=== PATIENT | male | born 1960 | race Caucasian/White ===

== ENCOUNTER 2017-11-26 16:41 | Emergency (ER) | payer BC ==
[2017-11-26] MEDS ORDERED: BUPIVACAINE 0.5% PF 10 ML VIAL ONE (17:24)
[2017-11-26] MEDS ORDERED: LIDOCAINE 1% 20 ML MDV ONE (17:25)
--- NOTE | 2017-11-26 17:27 | RAD REPORT ---
EXAM DESCRIPTION: RAD -Hand Left 3 View - 11/26/2017 5:19 pm CLINICAL HISTORY: Left hand pain status post injury FINDINGS: Amputation involves a portion of the terminal tuft of the fourth digit. Comminuted fractur e is seen. No dislocation is noted A small radiopaque foreign body is present within the soft tissues adjacent to second MCP joint
[2017-11-26] MEDS ORDERED: TETANUS & DIPHTHERIA TOX,ADULT 0.5 ML VIAL ONE (18:09)
[2017-11-26] MEDS ORDERED: CEFAZOLIN SODIUM 1 GM/VIAL ONE (18:09)
--- NOTE | 2017-11-26 18:26 | EDPHYS ---
Physician Documentation [facility] Name: Gorge Schuler Age: 57 yrs Sex: Male : 1960 Arrival Date: 11/26/2017 Time: 16:42 Bed 2 Private MD: ED Physician Celestine Maldonado HPI: 11/26 17:02 This 57 yrs old Male presents to ER via Ambulatory with complaints of cp Amputation - finger. 17:02 The patient or guardian reports deformity, injury. cp 17:02 The complaints affect the distal phalanx left fourth finger. Context: The problem was cp sustained outdoors, resulted from working on tractor, got caught in "gear". Onset: The symptoms/episode began/occurred just prior to arrival. Associated signs and symptoms: Pertinent negatives: fever. Severity of symptoms: in the emergency department the symptoms are unchanged. Historical: - Allergies: 16:52 No Known Allergies; hb - Home Meds: 16:52 Aspirin Oral [Active]; carvedilol oral oral [Active]; glyburide Oral [Active]; hb rosuvastatin oral oral [Active]; linagliptin oral oral [Active]; Lisinopril Oral [Active]; - PMHx: 16:52 Hyperlipidemia; Hypertension; hb - PSHx: 16:52 Hernia repair; hb - Immunization history:: Last tetanus immunization: unknown. - Social history:: Smoking status: Patient uses tobacco products, denies chronic smoking, but will smoke occasionally. ROS: 17:05 Constitutional: Negative for body aches, chills, fever, poor PO intake. cp 17:05 Eyes: Negative for injury, pain, redness, and discharge. cp 17:05 Cardiovascular: Negative for chest pain, edema, palpitations. 17:05 Respiratory: Negative for cough, shortness of breath, wheezing. 17:05 MS/extremity: Positive for injury or acute deformity, of the distal phalanx left fourth finger. 17:05 Skin: Negative for cellulitis, rash. 17:05 All other systems are negative. Exam: 17:15 Constitutional: The patient appears in no acute distress, alert, awake, non-toxic, well cp developed, well nourished. 17:15 Head/Face: Normocephalic, atraumatic. cp 17:15 Eyes: Periorbital structures: appear normal, Conjunctiva: normal, no exudate, no injection, Lids and lashes: appear normal, bilaterally. 17:15 ENT: External ear(s): are unremarkable, Nose: is normal, Mouth: is normal, Posterior pharynx: is normal, airway is patent, no erythema, no exudate. 17:15 Neck: External neck: is normal, ROM/movement: is normal, is supple, without pain, no range of motions limitations, no nuchal rigidity. 17:15 Chest/axilla: Inspection: normal. 17:15 Cardiovascular: Rate: normal, Rhythm: regular. 17:15 Respiratory: the patient does not display signs of respiratory distress, Respirations: normal, no use of accessory muscles, no retractions, no splinting, no tachypnea. 17:15 Musculoskeletal/extremity: Extremities: grossly normal except: noted in the distal phalanx left fourth finger: complete amputation and nail removal through distal portion of distal phalanx with avulsion of skin on rajan side, Perfusion: the extremity is normally perfused throughout, decreased sensation. Vital Signs: 16:48 BP 149 / 90; Pulse 95; Resp 17; Temp 98; Pulse Ox 98% on R/A; Pain 4/10; hb MDM: 16:55 Patient medically screened. cp 17:00 Differential diagnosis: dislocation, open fracture, closed fracture, abrasion. cp 18:23 Data reviewed: vital signs, nurses notes, radiologic studies, plain films. 04/12 16:59 Order name: XRAY Hand LEFT 3 View 04/ 17:19 Order name: Vicryl, Sutures; Complete Time: 17:29 04/12 17:19 Order name: Dressing - Wound; Complete Time: 17:29 04/12 17:19 Order name: Gloves, Sterile; Complete Time: 17:29 04/12 17:19 Order name: Setup Suture Tray; Complete Time: 17:29 04/12 17:42 Order name: Wound Care: please soak in betadine and NS; Complete Time: 18:07 04/12 18:13 Order name: Wound dressing: tube guaze cp Administered Medications: 17:45 Drug: Lidocaine (1 %) 5 ml {Note: medication administered by Nick HOLT} Volume: 5 ml; sg Route: Infiltration; 17:45 Drug: Marcaine (0.5 %) 5 ml {Note: medication administered by Nick RASMUSSEN.} Volume: 10 sg ml; Route: Infiltration; 18:30 Drug: Ancef 1 grams {Note: RIGHT ventrogluteal, along with tetanus vacc.} Route: IM; sg Site: Other; 18:30 Drug: Tetanus-Diphtheria Toxoid Adult 0.5 ml {County Manager: [employer]. Exp: sg 03/18/2020. Lot #: [id number]. } Route: IM; Site: Other; Disposition: 11/27 15:35 Co-signature as Attending Physician, Celestine Maldonado MD I agree with the assessment and pr plan of care. Disposition: 11/26/17 18:26 Discharged to Home. 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 - Condition is Stable. - Discharge Instructions: Traumatic Finger Amputation. - Prescriptions for Keflex 500 mg Oral Capsule - take 1 capsule by ORAL route every 6 hours for 10 days; 40 capsule. Tylenol- Codeine #3 300-30 mg Oral Tablet - take 2 tablets by ORAL route every 6 hours As needed; 20 tablet. - Medication Reconciliation Form, Thank You Letter, Antibiotic Education, Prescription Opioid Use form. - Follow up: Emergency Department; When: Tomorrow; Reason: wound check and dressing change. Follow up: Tereso Merino MD; When: 11/30/2017; Reason: reevaluation of amputated finger. - Problem is new. - Symptoms are unchanged. Signatures: Dispatcher [employer] Sea Irving RN RN sg Page, Corey, PA PA cp Baxter, Heather, RN RN Celestine Maldonado MD MD wa
--- NOTE | 2017-11-26 18:26 | ER ---
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 Transition of care: patient was not received from another setting of care. Complicating Factors: There are no complicating factors for this patient. Onset of symptoms was November 26, 2017. Care prior to arrival: None. 16:49 Method Of Arrival: Ambulatory hb 16:49 Acuity: SHEILA 2 hb Historical: - Allergies: 16:52 No Known Allergies; hb - Home Meds: 16:52 Aspirin Oral [Active]; carvedilol oral oral [Active]; glyburide Oral [Active]; hb rosuvastatin oral oral [Active]; linagliptin oral oral [Active]; Lisinopril Oral [Active]; - PMHx: 16:52 Hyperlipidemia; Hypertension; hb - PSHx: 16:52 Hernia repair; hb - Immunization history:: Last tetanus immunization: unknown. - Social history:: Smoking status: Patient uses tobacco products, denies chronic smoking, but will smoke occasionally. Vital Signs: 16:48 BP 149 / 90; Pulse 95; Resp 17; Temp 98; Pulse Ox 98% on R/A; Pain 4/10; hb ED Course: 16:42 Patient arrived in ED. as 16:50 Triage completed. hb 16:52 Arm band placed on left wrist. hb 16:54 Awa Grijalva, RN is Primary Nurse. hb 16:55 Wisam Chiang PA is PHCP. cp 16:55 Celestine Maldonado MD is Attending Physician. cp 16:55 Primary Nurse role handed off by Awa Grijalva RN sg 16:55 Sea Coates, DAREN is Primary Nurse. sg 17:19 X-ray completed. Portable x-ray completed in exam room. Patient tolerated procedure kc2 well. 17:20 XRAY Hand LEFT 3 View In Process Unspecified. EDMS 18:24 Tereso Merino MD is Referral Physician. cp Administered Medications: 17:45 Drug: Lidocaine (1 %) 5 ml {Note: medication administered by Nick HOLT} Volume: 5 ml; sg Route: Infiltration; 17:45 Drug: Marcaine (0.5 %) 5 ml {Note: medication administered by Nick RASMUSSEN.} Volume: 10 sg ml; Route: Infiltration; 18:30 Drug: Ancef 1 grams {Note: RIGHT ventrogluteal, along with tetanus vacc.} Route: IM; sg Site: Other; 18:30 Drug: Tetanus-Diphtheria Toxoid Adult 0.5 ml {Solar Energy Consultant And Designer: [employer]. Exp: sg 03/18/2020. Lot #: [id number]. } Route: IM; Site: Other; Outcome: 18:26 Discharge ordered by . cp 18:48 Patient left the ED. Signatures: Dispatcher [employer] EDMS Sea Coates RN RN sg Martinez, Amelia as Page, Corey, PA PA cp Baxter, Heather, RN RN hb Carr, Kelsie kc2
[2017-11-26 18:53] VITALS: BP 149/90; TEMP 98; O2SAT 98
== END 2017-11-26 18:48 | disposition home or self-care (01) ==
LOC: ER 16:41
DX: S68.615A Complete traumatic transphalangeal amputation of left ring finger, initial encounter (principal); W30.89XA Contact with other specified agricultural machinery, initial encounter; Y93.89 Activity, other specified; Y92.89 Other specified places as the place of occurrence of the external cause; I10 Essential (primary) hypertension; E78.5 Hyperlipidemia, unspecified; Z79.82 Long term (current) use of aspirin; Z23 Encounter for immunization; Z72.0 Tobacco use
CPT/HCPCS: 90714; 96372; 99283; J0690

== ENCOUNTER 2017-11-27 15:32 | Emergency (ER) | payer BC ==
--- NOTE | 2017-11-27 16:10 | EDPHYS ---
Physician Documentation [facility] Name: Gorge Schuler Age: 57 yrs Sex: Male : 1960 Arrival Date: 11/27/2017 Time: 15:35 Bed 18 Private MD: Zach Ervin ED Physician Celestine Maldonado HPI: 11/27 16:04 This 57 yrs old Male presents to ER via Ambulatory with complaints of Wound kb Recheck. 16:04 Patient presents to ED for recheck of: Patient presents to ED for recheck of: partial kb amputation of left ring finger. 16:06 The affected area is on the left ring finger. Progress: The patient reports no change kb in. The patient has not experienced similar symptoms in the past. The patient has been recently seen at the [facility] Emergency Department, yesterday, for similar complaints. Pt had a partial amputation of left ring finger yesterday, was seen in ER and told to follow up with Dr Merino on Thursday. Was also told to return to ER today for dressing change. . Historical: - Allergies: 15:38 No Known Allergies; la1 - PMHx: 15:38 Hyperlipidemia; Hypertension; la1 - Immunization history:: Adult Immunizations up to date. - Social history:: Smoking status: Patient uses tobacco products, denies chronic smoking, but will smoke occasionally. ROS: 15:47 Constitutional: Negative for fever, chills, and weight loss, Cardiovascular: Negative kb for chest pain, palpitations, and edema, Respiratory: Negative for shortness of breath, cough, wheezing, and pleuritic chest pain, Abdomen/GI: Negative for abdominal pain, nausea, vomiting, diarrhea, and constipation, MS/Extremity: Negative for injury and deformity, Neuro: Negative for headache, weakness, numbness, tingling, and seizure. 15:47 MS/extremity: Positive for of the left ring finger, partial amputation, needs dressing kb change. Exam: 15:48 Constitutional: This is a well developed, well nourished patient who is awake, alert, kb and in no acute distress. Head/Face: Normocephalic, atraumatic. Chest/axilla: Normal chest wall appearance and motion. Nontender with no deformity. No lesions are appreciated. Cardiovascular: Regular rate and rhythm with a normal S1 and S2. No gallops, murmurs, or rubs. Normal PMI, no JVD. No pulse deficits. Respiratory: Lungs have equal breath sounds bilaterally, clear to auscultation and percussion. No rales, rhonchi or wheezes noted. No increased work of breathing, no retractions or nasal flaring. Abdomen/GI: Soft, non-tender, with normal bowel sounds. No distension or tympany. No guarding or rebound. No evidence of tenderness throughout. Neuro: Awake and alert, GCS 15, oriented to person, place, time, and situation. Cranial nerves II-XII grossly intact. Motor strength 5/5 in all extremities. Sensory grossly intact. Cerebellar exam normal. Normal gait. 15:48 Skin: Wound recheck: Unrepaired laceration: no drainage, no erythema, no swelling. Vital Signs: 15:38 BP 136 / 76; Pulse 84; Resp 16; Temp 98.6; Pulse Ox 100% on R/A; Weight 113.4 kg; la1 Height 5 ft. 11 in. (180.34 cm); 15:38 Body Mass Index 34.87 (113.40 kg, 180.34 cm) la1 MDM: 15:38 Patient medically screened. kb 15:46 Data reviewed: vital signs, nurses notes. Data interpreted: Pulse oximetry: on room air kb is 100 %. Interpretation: normal. Counseling: I had a detailed discussion with the patient and/or guardian regarding: the historical points, exam findings, and any diagnostic results supporting the discharge/admit diagnosis, the need for outpatient follow up, a family practitioner, to return to the emergency department if symptoms worsen or persist or if there are any questions or concerns that arise at home. 11/27 15:46 Order name: Dressing - Wound; Complete Time: 16:10 kb Administered Medications: No medications were administered Disposition: 11/27/17 16:09 Discharged to Home. Impression: Encounter for change or removal of nonsurgical wound dressing. - Condition is Stable. - Discharge Instructions: Wound Care, [id number], Dressing Change, [id number]. - Medication Reconciliation Form, Thank You Letter, Antibiotic Education, Prescription Opioid Use form. - Follow up: Emergency Department; When: As needed; Reason: Worsening of condition. Follow up: Tereso Merino MD; When: 1 - 2 days; Reason: Recheck today's complaints. Addendum: 11/30/2017 07:44 Co-signature as Attending Physician, Celestine Maldonado MD I agree with the assessment and w a plan of care. Signatures: Anneliese Zaldivar, ARLEEN-C HAIRPIECE STYLIST-Josiah Sellers RN RN la1 Zohaib Snyder RN RN ae1 Celestine Maldonado MD MD wa Corrections: (The following items were deleted from the chart) 11/27 16:04 15:48 Skin: Wound recheck: Unrepaired laceration: kb kb 16:08 16:04 Patient presents to ED for recheck of: kb kb
--- NOTE | 2017-11-27 16:10 | ER ---
Nurse's Notes [facility] Name: Gorge Schuler Age: 57 yrs Sex: Male : 1960 Arrival Date: 11/27/2017 Time: 15:35 Bed 18 Private MD: Zach Ervin Diagnosis: Encounter for change or removal of nonsurgical wound dressing Presentation: 11/27 15:37 Presenting complaint: Patient states: I was here yesterday and they told me to come la1 here and get a dressing change today. Transition of care: patient was not received from another setting of care. Onset of symptoms was November 27, 2017. Care prior to arrival: None. 15:37 Method Of Arrival: Ambulatory la1 15:37 Acuity: SHEILA 5 la1 Triage Assessment: 16:19 General: Appears in no apparent distress. comfortable, Behavior is calm, cooperative. ae1 Pain: Complains of pain in dorsal aspect of distal phalanx of left ring finger, dorsal aspect of middle phalanx of left ring finger, dorsal aspect of proximal phalanx of left ring finger, palmar aspect of distal phalanx of left ring finger, palmar aspect of middle phalanx of left ring finger, palmar aspect of proximal phalanx of left ring finger and left ring fingernail. EENT: No signs and/or symptoms were reported regarding the EENT system. Neuro: Level of Consciousness is awake, alert, obeys commands, Oriented to person, place, time, situation. Cardiovascular: Patient's skin is warm and dry. Respiratory: Airway is patent Respiratory effort is even, unlabored, Respiratory pattern is regular, symmetrical. GI: No signs and/or symptoms were reported involving the gastrointestinal system. : No signs and/or symptoms were reported regarding the genitourinary system. Derm: Wound noted dorsal aspect of distal phalanx of left ring finger, dorsal aspect of middle phalanx of left ring finger, palmar aspect of distal phalanx of left ring finger and palmar aspect of middle phalanx of left ring finger. Musculoskeletal: No signs and/or symptoms reported regarding the musculoskeletal system. Historical: - Allergies: 15:38 No Known Allergies; la1 - PMHx: 15:38 Hyperlipidemia; Hypertension; la1 - Immunization history:: Adult Immunizations up to date. - Social history:: Smoking status: Patient uses tobacco products, denies chronic smoking, but will smoke occasionally. Screenin:18 Abuse screen: Denies threats or abuse. Nutritional screening: No deficits noted. ae1 Tuberculosis screening: No symptoms or risk factors identified. Fall Risk None identified. Vital Signs: 15:38 BP 136 / 76; Pulse 84; Resp 16; Temp 98.6; Pulse Ox 100% on R/A; Weight 113.4 kg; la1 Height 5 ft. 11 in. (180.34 cm); 15:38 Body Mass Index 34.87 (113.40 kg, 180.34 cm) la1 ED Course: 15:35 Patient arrived in ED. mr 15:35 Zach Ervin MD is Private Physician. mr 15:37 Triage completed. la1 15:38 Anneliese Zaldivar FNP-C is [facility]. kb 15:38 Celestine Maldonado MD is Attending Physician. kb 15:38 Arm band placed on left wrist. la1 15:39 Zohaib Snyder RN is Primary Nurse. ae1 15:55 Wound care: to laceration Soaked left hand . 5 16:09 Tereso Merino MD is Referral Physician. kb 16:10 Dressings: Kerlix X 1; dorsal aspect of distal phalanx of left ring finger, dorsal ae1 aspect of middle phalanx of left ring finger, dorsal aspect of proximal phalanx of left ring finger, left ring finger, palmar aspect of distal phalanx of left ring finger, palmar aspect of middle phalanx of left ring finger, palmar aspect of proximal phalanx of left ring finger and left ring fingernail non-adherent dressing x 1 dorsal aspect of distal phalanx of left ring finger, dorsal aspect of middle phalanx of left ring finger, dorsal aspect of proximal phalanx of left ring finger, palmar aspect of distal phalanx of left ring finger, palmar aspect of middle phalanx of left ring finger, palmar aspect of proximal phalanx of left ring finger and left ring fingernail. 16:18 Bed in low position. Call light in reach. Side rails up X 1. Pulse ox on. NIBP on. ae1 16:20 No provider procedures requiring assistance completed. Patient did not have IV access ae1 during this emergency room visit. Administered Medications: No medications were administered Outcome: 16:09 Discharge ordered by . tanya 16:20 Discharged to home ambulatory. ae1 16:20 Condition: stable 16:20 Discharge instructions given to patient, Instructed on discharge instructions, follow up and referral plans. Demonstrated understanding of instructions. 16:21 Patient left the ED. ae1 Signatures: Anneliese Zaldivar, JOYCEC MANAGER ESTATE-Janet Wang Lee, RN RN la1 Zohaib Snyder RN RN ae1 Janet White [facility]
[2017-11-27 16:25] VITALS: BP 136/76; TEMP 98.6; O2SAT 100
== END 2017-11-27 16:21 | disposition home or self-care (01) ==
LOC: ER 15:32
DX: Z48.00 Encounter for change or removal of nonsurgical wound dressing (principal)
CPT/HCPCS: 99283

== ENCOUNTER 2024-01-27 19:18 | Inpatient (IN) | payer BC ==
[2024-01-27] MEDS ORDERED: ONDANSETRON 4 MG/2 ML VIAL ONE (20:27)
[2024-01-27 20:36] LABS: Absolute Basophils 0.1 K/uL (0-0.5); Absolute Lymphocytes (CBC) 0.5 K/uL (0.7-4.9); Absolute Monocytes 0.9 K/uL (0.1-1.3); Absolute Neutrophil 15.7 K/uL (1.8-8.0); Basophils % 0.8 % (0-1.3); Hematocrit 34.5 % (39.6-49.0); Hemoglobin 11.7 g/dL (13.6-17.9); Lymphocytes % 2.9 % (15.3-44.8); MCH 31.5 pg (27.0-35.0); MCHC 33.9 g/dL (32.0-36.0); MCV 92.9 fL (80-100); MPV 7.9 fL (7.6-11.3); Monocytes % 5.2 % (3.3-12.3); Neutrophils % 91.1 % (41.7-73.7); Platelets 155 thou/uL (152-406); RBC Red Blood Cell Count 3.71 M/uL (4.33-5.43); Red Cell Distribution Width 13.5 % (12.1-15.2)
[2024-01-27 20:40] LABS: PT Prothrombin Time 12.1 SECONDS (9.5-12.5); PTT, Activated Partial Thromb 29.1 SECONDS (24.3-36.9); Protime INR 1.1
[2024-01-27 20:45] LABS: Specific Gravity 1.023 (1.005-1.030); Sqamous Epithelial <5 /HPF (None Seen); Urine Bacteria <20 /HPF (<20); Urine Bilirubin NEGATIVE (Negative); Urine Blood 3+ (Negative); Urine Clarity Clear (Clear); Urine Color Light-Yellow (Yellow); Urine Culture Reflex Order NOT NEEDED; Urine Glucose 4+ (Over) (Negative); Urine Ketones TRACE (Negative); Urine Microscopic Reflex YN ORDER UMIC; Urine Mucus Slight /HPF (None Seen); Urine Nitrite NEGATIVE (Negative); Urine Protein 3+ (Negative); Urine RBC <5 /HPF (None Seen); Urine Urobilinogen Normal (Normal); Urine WBC <5 /HPF (<5); Urine pH 8.5 (5.0-7.0)
[2024-01-27 20:50] LABS: Albumin 3.1 g/dL (3.4-5.0); Albumin/Globulin Ratio 0.8 (1.1-1.8); Anion Gap 12.5 mEq/L (5.0-15.0); Globulin 4.1 g/dL (2.3-3.5); Potassium 3.5 mEq/L (3.5-5.1); Protein, Total 7.2 g/dL (6.4-8.2)
[2024-01-27] MEDS ORDERED: NA CHLORIDE 0.9% 1,000 ML ONE (20:51)
[2024-01-27 20:59] LABS: SARS-CoV-2 Antigen CONTROL BLUE LINE VIS/BG OK; SARS-CoV-2 Antigen Rapid Res Negative (Negative)
[2024-01-27 21:03] LABS: Blood Morphology Comment NOT SEEN (NOT SEEN); Platelet Estimate ADEQ; White Blood Cell Scan OK (OK)
--- NOTE | 2024-01-27 21:30 | RAD REPORT ---
EXAM DESCRIPTION: Sabrinat Single View01/27/2024 8:02 pm CLINICAL HISTORY: chills, vomiting COMPARISON: CHEST SINGLE VIEW dated 02/21/2015; CHEST SINGLE VIEW dated 01/29/2015; CHEST SINGLE VIEW d ated 03/03/2013; CHEST SINGLE VIEW dated 03/01/2013 TECHNIQUE: Portable AP view of the chest. FINDINGS: Elevation of the left hemidiaphragm again seen. The lungs are clear. No pneumothorax or e ffusion. The cardiomediastinal contours are unremarkable. IMPRESSION: No acute cardiopulmonary process.
--- NOTE | 2024-01-27 23:04 | RAD REPORT ---
EXAM DESCRIPTION: CT - Chest Abd Pelvis Wo Con - 01/27/2024 9:52 pm CLINICAL HISTORY: chills, vomiting COMPARISON: No comparisons TECHNIQUE: Thin axial CT images of the chest, abdomen, and pelvis, performed without IV contrast. Mu ltiplanar reformats were generated and reviewed. All CT scans are performed using dose optimization technique as appropriate and may include automated exposure control or mA/KV adjustment according to patient size. FINDINGS: The lungs are clear.No pleural or pericardial effusion.No intrathoracic adenopathy. The liver, spleen, pancreas, adrenal glands and kidneys are within normal limits. Mild fluid opacification of nondistended small and large bowel loops. Mild distal colonic diverticulo sis. No bowel obstruction, free air, free fluid or abscess. Mild fat stranding in the upper retroperi toneum, nonspecific. Status post cholecystectomy. [id number] prostatomegaly. Infraumbilical lo bulated fat containing hernia. No pathologic lymphadenopathy in the abdomen or pelvis. No worrisome osseous finding. IMPRESSION: Mild fluid opacification of nondistended small and large bowel loops. This is nonspecifi c, but suggests infectious or inflammatory enteritis. Incidental findings as above.
[2024-01-27] MEDS ORDERED: CEFTRIAXONE 1000 MG/VIAL ONE (23:09)
[2024-01-27] MEDS ORDERED: METRONIDAZOLE 500mg IVPB 500 MG/100 ML BAG IV ONE (23:23)
--- NOTE | 2024-01-27 23:42 | ER ---
Nurse's Notes [facility] Name: Gorge Schuler Age: 63 yrs Sex: Male : 1960 Arrival Date: 01/27/2024 Time: 19:18 Bed 20 Private MD: Zach Ervin Diagnosis: Sepsis, unspecified organism;Infectious gastroenteritis and colitis, unspecified;Weakness Presentation: 01/26 19:33 Chief complaint: Patient states: fever, weakness, vomiting that started todya. as6 Coronavirus screen: At this time, the client does not indicate any symptoms associated with coronavirus-19. Ebola Screen: No symptoms or risks identified at this time. Initial Sepsis Screen: Does the patient meet any 2 criteria? No. Patient's initial sepsis screen is negative. Does the patient have a suspected source of infection? No. Patient's initial sepsis screen is negative. Risk Assessment: Do you want to hurt yourself or someone else? Patient reports no desire to harm self or others. Onset of symptoms was January 27, 2024. 19:33 Acuity: SHEILA 3 as6 19:33 Method Of Arrival: Wheelchair as6 Historical: - Allergies: 19:34 No Known Allergies; as6 - PMHx: 19:34 Hyperlipidemia; Hypertension; as6 19:35 Diabetes mellitus; as6 - PSHx: 19:34 Appendectomy; back; Stented artery; as6 - Immunization history:: Adult Immunizations up to date. - Infectious Disease History:: Denies. - Social history:: Smoking status: Patient denies any tobacco usage or history of. Screenin:40 [facility] ED Fall Risk Assessment (Adult) History of falling in the last 3 months, tm6 including since admission No falls in past 3 months (0 pts) Confusion or Disorientation No (0 pts) Intoxicated or Sedated No (0 pts) Impaired Gait No (0 pts) Mobility Assist Device Used No (0 pt) Altered Elimination No (0 pt) Score/Fall Risk Level 0 - 2 = Low Risk Oriented to surroundings, Maintained a safe environment, Educated pt \T\ family on fall prevention, incl call for assistance when getting out of bed. Abuse screen: Denies threats or abuse. Denies injuries from another. Nutritional screening: No deficits noted. Tuberculosis screening: No symptoms or risk factors identified. Assessment: 19:40 General: Appears in no apparent distress. Behavior is calm, cooperative. Pain: Denies tm6 pain. Neuro: Level of Consciousness is awake, alert, obeys commands, Oriented to person, place, time, situation. Cardiovascular: Patient's skin is warm and dry. Respiratory: Airway is patent Respiratory effort is even, unlabored, Respiratory pattern is regular, symmetrical. GI: Abdomen is round Reports nausea, vomiting. : No signs and/or symptoms were reported regarding the genitourinary system. EENT: No signs and/or symptoms were reported regarding the EENT system. Derm: No signs and/or symptoms reported regarding the dermatologic system. Musculoskeletal: Reports weakness in general weakness. 20:38 Reassessment: Patient appears in no apparent distress at this time. Patient and/or tm6 family updated on plan of care and expected duration. Pain level reassessed. Patient is alert, oriented x 3, equal unlabored respirations, skin warm/dry/pink. 21:30 Reassessment: Patient appears in no apparent distress at this time. Patient and/or tm6 family updated on plan of care and expected duration. Pain level reassessed. Patient is alert, oriented x 3, equal unlabored respirations, skin warm/dry/pink. 23:17 Reassessment: Patient appears in no apparent distress at this time. Patient and/or tm6 family updated on plan of care and expected duration. Pain level reassessed. Patient is alert, oriented x 3, equal unlabored respirations, skin warm/dry/pink. 01/27 01:04 Reassessment: report faxed to 2nd floor, confirmed by 6 Vital Signs: 01/26 19:33 BP 103 / 56; Pulse 106; Resp 16; Temp 98.5; Pulse Ox 98% ; Weight 95.25 kg; Height 5 as6 ft. 11 in. ; Pain 0/10; 20:38 BP 102 / 58; Pulse 100; Resp 18; Pulse Ox 95% on R/A; Pain 0/10; tm6 21:09 BP 92 / 44; Pulse 89; Pulse Ox 99% on R/A; MAP 58 mmHg; tm6 21:30 BP 91 / 53; Pulse 87; Pulse Ox 97% on R/A; MAP 65 mmHg; tm6 23:16 BP 111 / 66; Pulse 85; Resp 19; Pulse Ox 100% on R/A; MAP 80 mmHg; Pain 0/10; tm6 19:33 Body Mass Index 29.29 (95.25 kg, 180.34 cm) as6 19:33 Pain Scale: Adult as6 20:38 Pain Scale: Adult tm6 23:16 Pain Scale: Adult tm6 ED Course: 19:22 Patient arrived in ED. gm2 19:22 Zach Ervin MD is Private Physician. gm2 19:33 [facility]. cp 19:33 Jeronimo Beltre DO is Attending Physician. cp 19:34 Triage completed. as6 19:35 Arm band placed on. as6 19:40 Mason Santana, DAREN is Primary Nurse. tm6 19:40 Patient has correct armband on for positive identification. Bed in low position. Call tm6 light in reach. Side rails up X 1. Provided Education on: use of call lee. Client placed on continuous cardiac and pulse oximetry monitoring. NIBP monitoring applied. Pulse ox on. NIBP on. Door closed. Noise minimized. 20:03 Chest Single View XRAY In Process Unspecified. EDMS 20:23 SARS RAPID Sent. tm6 20:24 CBC with Diff Sent. tm6 20:24 CMP Sent. tm6 20:24 Lactate w/ 2H reflex if indic. Sent. tm6 20:24 Protime (+inr) Sent. tm6 20:24 Ptt, Activated Sent. tm6 20:24 Urinalysis w/ reflexes Sent. tm6 20:24 Influenza Screen (a \T\ B) Sent. tm6 20:24 EKG done, by ED staff, reviewed by Wisam RASMUSSEN. Inserted saline lock: 20 gauge in tm6 right forearm, using aseptic technique. Accessed. 21:52 CT Chest Abdomen Pelvis W/O Contrast In Process Unspecified. EDMS 22:35 Blood Culture Adult (2) Sent. tm6 23:41 Zach Ervin MD is Hospitalizing Provider. cp 01/27 02:01 No provider procedures requiring assistance completed. Patient admitted, IV remains in tm6 place. Administered Medications: 01/26 20:31 Drug: Ondansetron IVP 4 mg IVP once; over 2 minutes Route: IVP; Site: right wrist; tm6 20:56 Drug: NS 0.9% IV 500 ml IV at bolus once Route: IV; Rate: bolus; Site: right forearm; tm6 21:29 Follow up: IV Status: Completed infusion; IV Intake: 500ml tm6 21:29 Drug: NS 0.9% IV 500 ml IV at 250 ml/hr continuous Route: IV; Rate: 250 ml/hr; Site: tm6 right forearm; 23:16 Drug: Rocephin IV 1 grams IV at calculated rate once; Given slow IV push per pharmacy tm6 instructions Route: IV; Rate: calculated rate; Site: right forearm; 23:28 Drug: metroNIDAZOLE IVPB 500 mg 100 ml IVPB once over 30 mins Volume: 100 ml; Route: tm6 IVPB; Infused Over: 30 mins; Site: right forearm; Medication: 19:40 VIS not applicable for this client. tm6 Intake: 21:29 IV: 500ml; Total: 500ml. tm6 Outcome: 23:42 Decision to Hospitalize by Provider. cp 01/27 02:01 Admitted to Med/surg accompanied by tech, via wheelchair, room 219, tm6 Condition: stable Instructed on the need for admit, 02:01 Patient left the ED. tm6 Signatures: Dispatcher [employer] EDMS Wisam Chiang PA PA cp Slawson, Ashby, RN RN as6 Layla Wesley 2 Mason Santana RN RN tm6
--- NOTE | 2024-01-27 23:43 | EDPHYS ---
Physician Documentation [facility] Name: Gorge Schuler Age: 63 yrs Sex: Male : 1960 Arrival Date: 01/27/2024 Time: 19:18 Bed 20 Private MD: Zach Ervin ED Physician Jeronimo Beltre HPI: 01/26 19:50 This 63 yrs old Male presents to ER via Wheelchair with complaints of Fever, Dizziness, cp Weakness. 19:50 The patient reports fever, not measured (subjective). Onset: The symptoms/episode cp began/occurred suddenly, today. Associated signs and symptoms: Pertinent positives: chills, general weakness and 1 episode of vomiting. Historical: - Allergies: 19:34 No Known Allergies; as6 - PMHx: 19:34 Hyperlipidemia; Hypertension; as6 19:35 Diabetes mellitus; as6 - PSHx: 19:34 Appendectomy; back; Stented artery; as6 - Immunization history:: Adult Immunizations up to date. - Infectious Disease History:: Denies. - Social history:: Smoking status: Patient denies any tobacco usage or history of. ROS: 19:55 Constitutional: Positive for body aches, chills, Negative for fever, cp 19:55 Eyes: Negative for injury, pain, redness, and discharge, cp 19:55 ENT: Negative for drainage from ear(s), ear pain, sore throat, difficulty swallowing, difficulty handling secretions, 19:55 Cardiovascular: Negative for chest pain, edema, palpitations, 19:55 Respiratory: Negative for cough, shortness of breath, wheezing, 19:55 Abdomen/GI: Positive for vomiting, Negative for diarrhea, constipation, 19:55 Back: Negative for pain at rest, pain with movement, 19:55 Neuro: Positive for weakness, Negative for altered mental status, dizziness, headache, 19:55 All other systems are negative, Exam: 20:00 Constitutional: The patient appears in no acute distress, alert, awake, cp non-diaphoretic, non-toxic, well developed, well nourished, 20:00 Head/Face: Normocephalic, atraumatic. cp 20:00 Eyes: Periorbital structures: appear normal, Conjunctiva: normal, no exudate, no injection, Sclera: no appreciated abnormality, Lids and lashes: appear normal, bilaterally, 20:00 ENT: External ear(s): are unremarkable, Nose: is normal, Mouth: Lips: moist, Oral mucosa: pink and intact, moist, Posterior pharynx: is normal, airway is patent, no erythema, no exudate, 20:00 Neck: ROM/movement: is normal, is supple, without pain, no range of motions limitations, no meningismus, no nuchal rigidity, 20:00 Chest/axilla: Inspection: normal, Palpation: is normal, no crepitus, no tenderness, 20:00 Cardiovascular: Rate: tachycardic, Rhythm: regular, Edema: is not appreciated, JVD: is not appreciated, 20:00 Respiratory: the patient does not display signs of respiratory distress, Respirations: normal, no use of accessory muscles, no retractions, labored breathing, is not present, Breath sounds: are clear throughout, no decreased breath sounds, no stridor, no wheezing, 20:00 Abdomen/GI: Inspection: abdomen appears normal, Bowel sounds: active, all quadrants, Palpation: abdomen is soft and non-tender, in all quadrants, 20:00 Back: CVA tenderness, is absent, 20:00 Skin: cellulitis, is not appreciated, no rash present. 20:00 Neuro: Orientation: to person, place \T\ time. Mentation: is normal, Cerebellar function: is grossly normal, Motor: moves all fours, strength is normal, Sensation: is normal, 20:13 ECG was reviewed by the Attending Physician. cp Vital Signs: 19:33 BP 103 / 56; Pulse 106; Resp 16; Temp 98.5; Pulse Ox 98% ; Weight 95.25 kg; Height 5 as6 ft. 11 in. ; Pain 0/10; 20:38 BP 102 / 58; Pulse 100; Resp 18; Pulse Ox 95% on R/A; Pain 0/10; tm6 21:09 BP 92 / 44; Pulse 89; Pulse Ox 99% on R/A; MAP 58 mmHg; tm6 21:30 BP 91 / 53; Pulse 87; Pulse Ox 97% on R/A; MAP 65 mmHg; tm6 23:16 BP 111 / 66; Pulse 85; Resp 19; Pulse Ox 100% on R/A; MAP 80 mmHg; Pain 0/10; tm6 19:33 Body Mass Index 29.29 (95.25 kg, 180.34 cm) as6 19:33 Pain Scale: Adult as6 20:38 Pain Scale: Adult tm6 23:16 Pain Scale: Adult tm6 MDM: 19:36 Patient medically screened. 20:00 Differential diagnosis: viral Infection, bacterial infection, pneumonia UTI, cp gastroenteritis, colitis, sepsis. 23:20 Data reviewed: vital signs, nurses notes, lab test result(s), EKG, radiologic studies, cp CT scan, plain films, and as a result, I will admit patient. 23:20 I considered the following discharge prescriptions or medication management in the emergency department Medications were administered in the Emergency Department. See MAR. Independent interpretation of the following test(s) in the Emergency Department EKG: See my EKG interpretation above. Care significantly affected by the following chronic conditions: Diabetes, Hypertension. Counseling: I had a detailed discussion with the patient and/or guardian regarding the historical points, exam findings, and any diagnostic results supporting the discharge/admit diagnosis, lab results, radiology results, the need for further work-up and treatment in the hospital. Response to treatment: the patient's symptoms have mildly improved after treatment. 01/26 19:46 Order name: Influenza Screen (a \T\ B); Complete Time: 21:28 01/26 19:46 Order name: CBC with Diff; Complete Time: 21:28 01/26 20:44 Interpretation: Normal except: WBC 17.30; RBC 3.71; HGB 11.7; HCT 34.5; MARIANNA% 91.1; LYM% cp 2.9; NEUT A 15.7; LYMA 0.5. 01/26 19:46 Order name: CMP; Complete Time: 21:28 06/12 21:29 Interpretation: Normal except: NA 131; GLUC 203; BUN 30; CRE 2.29; GFR 31; AST 51; ALB cp 3.1; GLOB 4.1; A/G 0.8. 01/26 19:46 Order name: Lactate w/ 2H reflex if indic.; Complete Time: 21:28 01/26 19:46 Order name: Protime (+inr); Complete Time: 20:44 01/26 19:46 Order name: Ptt, Activated; Complete Time: 20:44 01/26 19:46 Order name: Urinalysis w/ reflexes; Complete Time: 21:28 cp 06/12 21:29 Interpretation: Normal except: UGLUC 4+ (Over); UKET TRACE; UBLD 3+; UPH 8.5; UPROT 3+. cp 06/12 19:46 Order name: SARS RAPID; Complete Time: 21:28 cp 06/12 20:31 Order name: Glucose, Ancillary Testing; Complete Time: 20:44 EDMS 12 21:04 Order name: CBC Smear Scan; Complete Time: 21:28 EDMS 12 21:38 Order name: Blood Culture Adult (2) cp 01/27 00:37 Order name: Basic Metabolic Panel EDMS 01/27 00:37 Order name: Basic Metabolic Panel EDMS 01/27 00:37 Order name: Basic Metabolic Panel EDMS 01/27 00:37 Order name: CBC with Automated Diff EDMS 01/27 00:37 Order name: CBC with Automated Diff EDMS 01/27 00:37 Order name: CBC with Automated Diff EDMS 01/26 19:46 Order name: Chest Single View XRAY; Complete Time: 21:36 cp 06/12 21:35 Order name: CT Chest Abdomen Pelvis W/O Contrast; Complete Time: 23:15 cp 06/12 19:46 Order name: Accucheck; Complete Time: 20:23 cp /12 19:46 Order name: Cardiac monitoring; Complete Time: 20:12 cp 06/12 19:46 Order name: EKG - Nurse/Tech; Complete Time: 20:24 cp 12 19:46 Order name: IV Saline Lock - Large Bore; Complete Time: 20:24 cp 01/26 19:46 Order name: Labs collected and sent; Complete Time: 20:24 cp 01/26 19:46 Order name: O2 Per Protocol; Complete Time: 20:12 cp /12 19:46 Order name: O2 Sat Monitoring; Complete Time: 20:12 cp 06/12 19:46 Order name: Vital Signs; Complete Time: 20:24 cp EC:13 Rate is 99 beats/min. Rhythm is regular. ME interval is normal. QRS interval is normal. cp T waves are Inverted in lead aVR. Interpreted by me. Reviewed by me. Administered Medications: 20:31 Drug: Ondansetron IVP 4 mg IVP once; over 2 minutes Route: IVP; Site: right wrist; tm6 20:56 Drug: NS 0.9% IV 500 ml IV at bolus once Route: IV; Rate: bolus; Site: right forearm; tm6 21:29 Follow up: IV Status: Completed infusion; IV Intake: 500ml tm6 21:29 Drug: NS 0.9% IV 500 ml IV at 250 ml/hr continuous Route: IV; Rate: 250 ml/hr; Site: tm6 right forearm; 23:16 Drug: Rocephin IV 1 grams IV at calculated rate once; Given slow IV push per pharmacy tm6 instructions Route: IV; Rate: calculated rate; Site: right forearm; 23:28 Drug: metroNIDAZOLE IVPB 500 mg 100 ml IVPB once over 30 mins Volume: 100 ml; Route: tm6 IVPB; Infused Over: 30 mins; Site: right forearm; Disposition Summary: 01/27/24 23:42 Hospitalization Ordered Notes: Hospitalization Status: Inpatient Admission cp Provider: Zach Ervin cp Location: Telemetry/MedSurg (Inpatient) cp Condition: Stable cp Problem: new cp Symptoms: have improved cp Bed/Room Type: Standard cp Room Assignment: 219(01/28/24 00:41) jb4 Diagnosis - Sepsis, unspecified organism cp - Infectious gastroenteritis and colitis, unspecified cp - Weakness cp Forms: - Medication Reconciliation Form cp - SBAR form cp - Leadership Thank You Letter cp Signatures: Dispatcher [employer] EDMS Wisam Chiang PA PA cp Aroldo Figueredo RN RN jb4 Samm Singh RN RN as6 Mason Santana RN RN tm6 Corrections: (The following items were deleted from the chart) 19:46 19:46 Influenza Screen (A \T\ B)+BA.LAB.BRZ ordered. EDMS EDMS 19:46 19:46 CBC+H.LAB.BRZ ordered. EDMS EDMS 19:46 19:46 COMPREHENSIVE METABOLIC PANEL+C.LAB.BRZ ordered. EDMS EDMS 19:46 19:46 LACTATE+C.LAB.BRZ ordered. EDMS EDMS 19:46 19:46 PROTIME (+INR)+COAG.LAB.BRZ ordered. EDMS EDMS 19:46 19:46 PTT, ACTIVATED+COAG.LAB.BRZ ordered. EDMS EDMS 19:46 19:46 Urinalysis+U.LAB.BRZ ordered. EDMS EDMS 19:46 SARS-COV-2 Antigen Rapid+I.LAB.BRZ ordered. EDMS EDMS 19:46 Chest Single View+RAD.RAD.BRZ ordered. EDMS EDMS 01/27 00:41 01/26 23:42 cp jb4
[2024-01-28] MEDS ORDERED: ONDANSETRON 4 MG/2 ML VIAL IV PRN (00:30)
[2024-01-28] MEDS: NA CHLORIDE 0.9% 1,000 ML IV SCH (02:19)
[2024-01-28 03:01] VITALS: BMI 31.4
[2024-01-28 03:25] LABS: Absolute Basophils 0.1 K/uL (0-0.5); Absolute Lymphocytes (CBC) 0.5 K/uL (0.7-4.9); Absolute Monocytes 0.6 K/uL (0.1-1.3); Absolute Neutrophil 14.6 K/uL (1.8-8.0); Basophils % 0.4 % (0-1.3); Hemoglobin 10.9 g/dL (13.6-17.9); Lymphocytes % 3.3 % (15.3-44.8); MCH 31.3 pg (27.0-35.0); MCHC 32.9 g/dL (32.0-36.0); MPV 8.4 fL (7.6-11.3); Monocytes % 3.6 % (3.3-12.3); Platelets 113 thou/uL (152-406); RBC Red Blood Cell Count 3.47 M/uL (4.33-5.43); Red Cell Distribution Width 13.5 % (12.1-15.2)
[2024-01-28 03:29] LABS: Neutrophils % 92.7 % (41.7-73.7)
[2024-01-28] MEDS: METRONIDAZOLE 500mg IVPB 500 MG/100 ML BAG IV SCH (05:17)
[2024-01-28] MEDS: INSULIN REGULAR (HUMAN) 100 UNIT/ML SQ SCH (07:30)
[2024-01-28] MEDS ORDERED: carvediloL 6.25 MG TAB PO SCH (08:00)
[2024-01-28] MEDS: CLOPIDOGREL 75 MG TABLET PO SCH (08:07)
[2024-01-28] MEDS: ROSUVASTATIN 10 MG TAB PO SCH (08:07)
[2024-01-28] MEDS: ENOXAPARIN 30 MG/0.3 ML SQ SCH (08:08)
[2024-01-28] MEDS: carvediloL 3.125 MG TAB PO SCH (08:08)
[2024-01-28] MEDS: ACETAMINOPHEN 500 MG TAB PO ONE (08:08)
[2024-01-28] MEDS: ASPIRIN EC 81 MG TAB PO SCH (08:08)
[2024-01-28] MEDS: AMLODIPINE 5 MG TAB PO SCH (08:09)
[2024-01-28] MEDS: FAMOTIDINE 20 MG TAB PO SCH (08:09)
[2024-01-28] MEDS: Levofloxacin500mg IV 500 MG/100 ML BAG IV SCH (08:09)
[2024-01-28] MEDS ORDERED: CEFTRIAXONE 1,000 MG in NA CHLORIDE 0.9% 50 ML IVPB SCH (09:00)
[2024-01-28] MEDS: ACETAMINOPHEN 500 MG TAB PO PRN (18:03)
--- NOTE | 2024-01-28 20:40 | HP ---
Date of Admission: 01/28/2024 Chief Complaint: Chills, nausea, vomiting, stomach pain, and diarrhea. History Of Present Illness: This is a 63-year-old male patient, who came into emergency room with this complaints of nausea, vomiting, and some vague abdominal cramps type of pain that started yesterday and felt like having chills. He felt very weak with this symptoms. He came into emergency room and after he came to hospital, started to have diarrhea. After he was evaluated in the emergency room, he was admitted to the hospital and he was started on IV fluid, IV antibiotic, which was ceftriaxone and metronidazole. When I saw him this morning, he was lying in bed, sleeping, easily arousable, and still feeling very weak, but overall better compared to how he was before he came to the hospital as he reports. Denies any blood in stool or hematemesis. Allergies: NO KNOWN ALLERGIES. Review of Systems: GI: As mentioned above. Constitutional: As mentioned above. All other systems reviewed and negative. Medications: At home, he takes amlodipine 5 mg daily in morning, aspirin 81 mg daily, clopidogrel 75 mg daily, carvedilol 6.25 mg 2 times a day, Trulicity 4.5 mg once a week subcutaneous injection, Jardiance 25 mg daily, famotidine 40 mg daily, Lantus 45 units subcutaneous injection daily at bedtime, iron 65 mg daily, rosuvastatin 40 mg daily at bedtime. 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 Family History: Father , had throat cancer. Mother has diabetes. Social History: Prior history of smoking, not at present time. Use of alcohol, drinks beer few times a week. Physical Examination: Vital Signs: This morning when I saw him, temperature was 100.6, pulse 88, respiratory rate 18, blood pressure 111/64, oxygen saturation 97%. Height 5 feet 11 inches, weight 224 pounds. General: Awake, alert, oriented, not in distress. HEENT: Head atraumatic, normocephalic. Conjunctivae nonerythematous. Sclerae white. Mouth, no thrush or edema noted. Ears/Nose, no mass, lesion, discharge noted. Neck: Supple. No JVD, lymph nodes, bruit, thyromegaly noted. Lungs: Bilateral good equal air entry. Clear to auscultation. No rhonchi. No rales. Heart: Normal heart sounds, no murmur or gallop. Abdomen: Soft, bowel sounds normal. No guarding, rigidity, tenderness, mass, hepatosplenomegaly, distention, or bruit noted. Extremities: No leg edema. No calf tenderness. Skin: No rash, ulcer, cellulitis. Lymphatics: No lymph node enlargement in neck, supraclavicular, infraclavicular region. Neuro: No focal neurological deficit. Chest: Unremarkable. External Genitalia: Deferred. Rectal: Deferred. Laboratory Data: Yesterday, white count 17.3, hemoglobin 11.7, platelets 155. Today, white count 15.7, hemoglobin 10.9, platelets 113. Yesterday chemistry, sodium 131, potassium 3.5, chloride 100, bicarb 22, BUN 30, creatinine 2.29, glucose 203, lactic acid 1.8. Liver function tests unremarkable except AST 51. Today, BUN 26, creatinine 2.10, sodium 133, potassium 4, chloride 103, bicarb 21. Urinalysis unremarkable except 3+ blood and 3+ protein. COVID-19 test negative. Chest x-ray, no acute cardiopulmonary changes. CAT scan of the chest, abdomen, pelvis without contrast shows mild fluid opacification of known distended small and large bowel loops. No evidence of any bowel obstruction, free air. Impression: 1. Acute gastroenteritis. 2. Volume depletion. 3. Acute kidney injury. 4. Coronary artery disease. 5. Hypertension. 6. Mixed hyperlipidemia. 7. Gastroesophageal reflux disease. 8. Type 2 diabetes mellitus with diabetes retinopathy. 9. Anemia, chronic, unspecified. 10. Thrombocytopenia. 11. Chronic kidney disease stage IIIB. Plan: We will go ahead and admit the patient to hospital for further evaluation and management of this problem. The patient is appropriate for inpatient and is expected to spend 2 midnights in hospital. For his acute gastroenteritis problem, we will go ahead and continue IV fluid and IV antibiotic which is metronidazole and I will discontinue ceftriaxone and start him on Levaquin per order. We will go ahead and repeat blood work tomorrow morning. For volume depletion and acute kidney injury, we will continue IV fluid hydration and monitor his blood work with blood test tomorrow. We will go ahead and do DVT prophylaxis using Lovenox per order. For coronary artery disease, we will continue his clopidogrel and aspirin as he takes, no need for any further intervention. For hyperlipidemia, we will continue his rosuvastatin per order and no need for any further intervention. For hypertension, we will continue his antihypertensive medication as per order with instruction to hold blood pressure medication if systolic blood pressure less than 130. For gastroesophageal reflux disease, we will continue his famotidine as per order. Diabetes will be managed with sliding scale insulin at this point. Details and plan of treatment discussed with the patient. I will see him tomorrow morning for followup. Total time spent 80 minutes including communication with ER provider, review of ER records, review of prior office record and performing current admission evaluation and management. FABRIZIO/MODL Voice ID: [id number] JOHN
[2024-01-29 07:24] LABS: Absolute Lymphocytes (CBC) 0.7 K/uL (0.7-4.9); Absolute Monocytes 0.8 K/uL (0.1-1.3); Absolute Neutrophil 8.9 K/uL (1.8-8.0); Basophils % 0.4 % (0-1.3); Eosinophils % 0.3 % (0-4.4); Lymphocytes % 6.5 % (15.3-44.8); MCH 32.5 pg (27.0-35.0); MCHC 34.7 g/dL (32.0-36.0); MCV 93.8 fL (80-100); MPV 8.1 fL (7.6-11.3); Monocytes % 7.8 % (3.3-12.3); Nucleated Red Blood Cells % 0.1 % (0-0); Platelets 112 thou/uL (152-406); RBC Red Blood Cell Count 3.09 M/uL (4.33-5.43); Red Cell Distribution Width 13.8 % (12.1-15.2)
[2024-01-29 07:45] LABS: Albumin 2.4 g/dL (3.4-5.0); Albumin/Globulin Ratio 0.7 (1.1-1.8); Anion Gap 11.8 mEq/L (5.0-15.0); Bilirubin Total 0.7 mg/dL (0.2-1.0); Globulin 3.5 g/dL (2.3-3.5); Magnesium 2.1 mg/dL (1.6-2.4); Potassium 3.8 mEq/L (3.5-5.1); Protein, Total 5.9 g/dL (6.4-8.2)
--- NOTE | 2024-01-29 11:17 | PN ---
Date of Progress Note: 01/29/2024 Subjective: The patient was seen this morning for followup. He was lying in bed, not in distress, feeling a lot better than yesterday. His generalized weakness problem has improved significantly and he is able to ambulate without any problem. Denies any abdominal pain, nausea, vomiting, or diarrhea. The patient reports having bowel movements in last 24 hours and reports that he has seen formed stool and denies any watery or liquid stool. Appetite has improved as well as per patient. Objective: Vital Signs: Reviewed. Last temperature this morning is 98.6. His maximum temperature in last 24 hours is 103 degrees Fahrenheit. This morning, last vital signs, temperature 98.6, pulse 86, respiratory rate 17, blood pressure 100/59, oxygen saturation 96% on room air. HEENT: Unremarkable. Lungs: Clear to auscultation. Heart: Sounds normal. Abdomen: Soft. Bowel sounds normal. No guarding, rigidity, tenderness, distention. Extremities: No leg edema. Right foot plantar aspect of the great toe has callus, which is chronic finding for him. There is no evidence of any infection around it. The patient sees a ice skating teacher on a regular basis for this callus problem as he reports. Laboratory Data: WBC this morning is 10.5, hemoglobin 10, platelets 112. Sodium 131, potassium 3.8, chloride 104, bicarb 19, BUN 21, creatinine 1.74, glucose 137. Liver function tests unremarkable. Blood culture 1 bottle out of 4 bottles is growing gram-positive cocci as of this morning. Impression: 1. Acute gastroenteritis. 2. Acute kidney injury. 3. Volume depletion. 4. Type 2 diabetes mellitus. 5. Coronary artery disease. 6. Hypertension. Plan: We will go ahead and continue IV fluid. Continue antibiotics per order. We will repeat blood work tomorrow morning. Ambulation was encouraged. The patient has only 1 bottle out of 4 bottles growing this gram-positive cocci. We will follow up on final results on the culture, but there is a good possibility this could be skin contamination and not actually true positive result. All these details were discussed with the patient and his son who was at bedside this morning. I will see him tomorrow for followup. FABRIZIO/MODL Voice ID: [id number] Report ID: [id number] [id number]
[2024-01-30 08:26] LABS: Absolute Eosinophils 0.2 K/uL (0-0.5); Absolute Lymphocytes (CBC) 0.9 K/uL (0.7-4.9); Absolute Monocytes 0.8 K/uL (0.1-1.3); Absolute Neutrophil 6.5 K/uL (1.8-8.0); Basophils % 0.4 % (0-1.3); Eosinophils % 1.8 % (0-4.4); Hematocrit 30.2 % (39.6-49.0); Hemoglobin 10.4 g/dL (13.6-17.9); Lymphocytes % 10.8 % (15.3-44.8); MCH 32.4 pg (27.0-35.0); MCHC 34.4 g/dL (32.0-36.0); MCV 94.3 fL (80-100); MPV 7.9 fL (7.6-11.3); Monocytes % 9.6 % (3.3-12.3); Neutrophils % 77.4 % (41.7-73.7); Nucleated Red Blood Cells % 0.1 % (0-0); Platelets 134 thou/uL (152-406); RBC Red Blood Cell Count 3.21 M/uL (4.33-5.43); Red Cell Distribution Width 13.7 % (12.1-15.2)
[2024-01-30 08:31] LABS: Anion Gap 9.7 mEq/L (5.0-15.0); Potassium 3.7 mEq/L (3.5-5.1)
--- NOTE | 2024-01-30 20:56 | PN ---
Date of Progress Note: 01/30/2024 Subjective: The patient was seen this morning for followup. No new complaints or problems reported by patient, lying in bed, not in distress. Overall, he feels a lot better. His appetite has improve d significantly. He is ambulating well without any difficulty and does not have any generalized weak ness, so there has been significant improvement in last 48 hours, especially more so in last 24 hours . Objective: Vital Signs: The patient's vital signs are reviewed. He has remained afebrile now. Las t set of vital signs this morning, temperature 96.8, pulse 74, respiratory rate 18, blood pressure 12 3/70, oxygen saturation 100%. HEENT: Unremarkable. Lungs: Clear to auscultation. Heart: Sounds normal. Abdomen: Soft. Bowel sounds normal. No guarding, rigidity, tenderness, distention. Extremities: No leg edema. Laboratory Data: White count 8.5, hemoglobin 10.4, platelets 134. Sodium 134, potassium 3.7, chlori de 107, bicarb 21, BUN 18, creatinine 1.54, glucose 163. Blood culture 1 bottle out of 4 bottles was growing bacteria and results reviewed today. It appears to be skin contamination, so no need for fu rther intervention. Impression: 1.Acute gastroenteritis. 2.Sepsis, resolved. 3.Anemia, unspecified. 4.Hypertension. 5.Coronary artery disease. Plan: We will go ahead and continue current antibiotic. IV fluid will be discontinued. The patient was encouraged to ambulate and I will see him tomorrow for followup. Plan is to possibly discharge him to go home tomorrow and details and plan of treatment discussed with the patient. FABRIZIO/MODL Voice ID: [id number] Report ID: [id number]
[2024-01-31 05:57] VITALS: O2SAT 99
[2024-01-31 10:43] VITALS: TEMP 97.7
--- NOTE | 2024-01-31 13:28 | DS ---
Date of Discharge: 01/31/2024 Disposition: Discharged to go home. Physical Examination: HEENT: Unremarkable. Lungs: Clear to auscultation. Heart: Sounds normal. Abdomen: Soft. Bowel sounds normal. No guarding, rigidity, tenderness, distention. Extremities: No leg edema. There is some redness of the skin between right knee and right ankle are a that I have noted for last 3 days and today actually it is better than yesterday. It is slightly w arm to touch, but overall definitely better today than yesterday. Laboratory Data: Upon admission, white count 17.3, hemoglobin 11.7, platelets 155, and yesterday whi te count 8.5, hemoglobin 10.4, platelets 134. Lowest platelet count was 112 and that was day before yesterday. Initial chemistry values: Sodium 131, potassium 3.5, chloride 100, bicarb 22, BUN 30, cr eatinine 2.29, glucose 203. Lactic acid level 1.8. Liver function tests unremarkable. Last chemist biological ry from yesterday, sodium 134, potassium 3.7, chloride 107, bicarb 21, BUN 18, creatinine 1.54, gluco se 116. Discharge Medications And Instructions: Continue all prior home medication except following changes: 1.Do not take amlodipine. 2.Lower dose of Lantus insulin and take 15 units daily at bedtime. 3.Start Levaquin 500 mg 1 tablet by mouth daily with food for 1 week. 4.Start metronidazole 500 mg take 1 tablet by mouth 3 times a day with food for 1 week. 5.Follow up at my office on 02/02 or 02/04/2024. Hospital Course: This is a 63-year-old pleasant male patient who was admitted to the hospital with c hills, nausea, vomiting, stomach pain, and diarrhea. Please see dictated H and P for more informatio n. After patient was evaluated in the emergency room, he was admitted to the hospital with acute gas troenteritis, volume depletion, acute kidney injury, and evidence of sepsis. His blood culture remai sanjay negative except 1 bottle out of 4 bottles grew bacteria, which turned out to be skin contaminatio n. His blood pressure was low along with high white count, fever, so clinically he did qualify for s epsis, which was treated with IV fluid and IV antibiotics. Overall, his condition improved once we s tarted him on Levaquin and Flagyl. His condition started improving along with other supportive measu res and he started feeling better. His weakness problem resolved, started ambulating well and his ap petite has returned, so today he feels like he is back to his normal self and medically he is stable for discharge. I have personally gone over discharge medications and instructions with him and obvio usly we will give him a copy of discharge paperwork as well. Final Diagnoses: 1.Acute gastroenteritis. 2.Acute kidney injury. 3.Volume depletion. 4.Sepsis. 5.Thrombocytopenia. 6.Anemia, chronic, unspecified. 7.Chronic kidney disease, stage 3B. 8.Type 2 diabetes mellitus with diabetic retinopathy. 9.Gastroesophageal reflux disease. 10.Hypertension. 11.Hyperlipidemia. Total time spent today, 40 minutes. FABRIZIO/MODL Voice ID: [id number] Report ID: [id number]
[2024-01-31 13:29] VITALS: BP 121/74
--- NOTE | 2024-02-01 15:10 | EKG ---
Test Date: 2024-01-27 Test Time: 20:08:38 Cylinder Filler: GOOD MEASUREMENT RESULTS: Intervals: Rate: 99 WI: 152 QRSD: 80 QT: 350 QTc: 449 [place]: P: 20 WI: 152 QRS: 30 T: 75 INTERPRETIVE STATEMENTS: Normal sinus rhythm Nonspecific ST abnormality Abnormal ECG Compared to ECG 07/05/2013 08:38:31 ST (T wave) deviation now present Electronically Signed On 02-01-24 14:56:49 CDT by Fabiano Hernandez
== END 2024-01-31 12:42 | disposition home or self-care (01) | DRG 872 ==
LOC: ER 19:18 → ERHOLD 01-28 00:30 → 2ND 01-28 01:45
PROVIDERS: ADMIT Internal Medicine; ATTEND Internal Medicine
DX: A41.9 Sepsis, unspecified organism (principal); N17.9 Acute kidney failure, unspecified; K52.9 Noninfective gastroenteritis and colitis, unspecified; E78.5 Hyperlipidemia, unspecified; I25.10 Atherosclerotic heart disease of native coronary artery without angina pectoris; Z98.61 Coronary angioplasty status; I10 Essential (primary) hypertension; E11.22 Type 2 diabetes mellitus with diabetic chronic kidney disease; I12.9 Hypertensive chronic kidney disease with stage 1 through stage 4 chronic kidney disease, or unspecified chronic kidney disease; N18.32 Chronic kidney disease, stage 3b; Z79.4 Long term (current) use of insulin; E11.319 Type 2 diabetes mellitus with unspecified diabetic retinopathy without macular edema; K57.90 Diverticulosis of intestine, part unspecified, without perforation or abscess without bleeding; K21.9 Gastro-esophageal reflux disease without esophagitis; D64.9 Anemia, unspecified; D69.6 Thrombocytopenia, unspecified; E86.9 Volume depletion, unspecified
CPT/HCPCS: 36415; 71045; 71250; 74176; 80048; 80053; 81001; 82947; 83605; 83735; 84100; 85025; 85610; 85730; 87040; 87205; 87804; 87811; 93005; 99285; J0696; J1650; J2405; J7030; J7040

== ENCOUNTER 2024-04-14 10:51 | Observation (INO) | payer OTHER, BC ==
[2024-04-14 11:28] LABS: Absolute Basophils 0.1 K/uL (0-0.5); Absolute Eosinophils 0.1 K/uL (0-0.5); Absolute Lymphocytes (CBC) 0.9 K/uL (0.7-4.9); Absolute Monocytes 0.7 K/uL (0.1-1.3); Absolute Neutrophil 6.8 K/uL (1.8-8.0); Basophils % 0.8 % (0-1.3); Eosinophils % 1.5 % (0-4.4); Hematocrit 41.3 % (39.6-49.0); Hemoglobin 13.7 g/dL (13.6-17.9); MCH 31.1 pg (27.0-35.0); MCHC 33.2 g/dL (32.0-36.0); MCV 93.6 fL (80-100); MPV 7.5 fL (7.6-11.3); Monocytes % 7.8 % (3.3-12.3); Neutrophils % 79.9 % (41.7-73.7); Platelets 130 thou/uL (152-406); RBC Red Blood Cell Count 4.41 M/uL (4.33-5.43); Red Cell Distribution Width 14.3 % (12.1-15.2)
[2024-04-14 11:32] LABS: Protime INR 0.98
[2024-04-14 11:53] LABS: Anion Gap 12.6 mEq/L (5.0-15.0); Potassium 3.6 mEq/L (3.5-5.1); Troponin High Sensitivity 6.6 pg/mL (<58.9)
--- NOTE | 2024-04-14 12:03 | RAD REPORT ---
EXAM DESCRIPTION: RAD - Chest Single View - 04/14/2024 11:54 am CLINICAL HISTORY: CHEST PAIN Chest pain. COMPARISON: Chest Single View dated 01/27/2024; CHEST SINGLE VIEW dated 02/21/2015; CHEST SINGLE VIEW d ated 01/29/2015; CHEST SINGLE VIEW dated 03/03/2013 FINDINGS: Portable technique limits examination quality. The lungs are grossly clear. The heart is normal in size. No displaced fractures. IMPRESSION: No acute intrathoracic process suspected.
[2024-04-14] MEDS ORDERED: ASPIRIN 325 MG TAB ONE (12:30)
--- NOTE | 2024-04-14 14:25 | EDPHYS ---
Physician Documentation [facility] Name: Gorge Schuler Age: 64 yrs Sex: Male : 1960 Arrival Date: 04/14/2024 Time: 10:51 Bed 4 Private MD: ED Physician Edward Nagy HPI: 04/14 12:16 This 64 yrs old Male presents to ER via Wheelchair with complaints of Chest Pain. rn 12:16 The patient or guardian reports chest pain that is located primarily in the substernal rn area, anterior chest wall. Onset: this morning. The pain does not radiate. Associated signs and symptoms: Pertinent positives: nausea, Pertinent negatives: abdominal pain, diaphoresis, shortness of breath, syncope, vomiting. The chest pain is described as a heaviness, a pressure. Duration: The patient or guardian reports a single episode, that is still ongoing. Severity of pain: At its worst the pain was moderate in the emergency department the pain has improved. The patient has experienced similar episodes in the past. Patient reports substernal and left-sided chest pain that began this morning while at rest, no radiation, associated with nausea but no diaphoresis. Has had stents in the past with Dr. Hernandez, cath was 2 to 3 years ago, seen 6 months ago and told okay. Patient was told in previous cath that had a 50% lesion but they were keeping an eye on. Does not feel ill. No fever. No cough. No shortness of breath. No abdominal pain. Pain feels the same as before when required stent.. Historical: - Allergies: 11:03 No Known Allergies; tm6 - PMHx: 11:03 diabetes mellitus; Hyperlipidemia; Hypertension; tm6 - PSHx: 11:03 Appendectomy; back; Stented artery; Cholecystectomy; tm6 - Immunization history:: Client reports receiving the 2nd dose of the Covid vaccine. - Infectious Disease History:: Denies. - Social history:: Smoking status: Patient/guardian denies using tobacco, the patient reports quitting approximately 10 years ago, Patient uses alcohol, on a daily basis. - Family history:: not pertinent. - Hospitalizations: : No recent hospitalization is reported. ROS: 12:16 Constitutional: Negative for fever, chills, and weight loss, Cardiovascular: Positive rn for chest pain Respiratory: Negative for shortness of breath, cough, wheezing, and pleuritic chest pain, Abdomen/GI: Negative for abdominal pain, nausea, vomiting, diarrhea, and constipation, Back: Negative for injury and pain, MS/Extremity: Negative for injury and deformity, Skin: Negative for injury, rash, and discoloration, Neuro: Negative for headache, weakness, numbness, tingling, and seizure, Exam: 12:16 Constitutional: This is a well developed, well nourished patient who is awake, alert, rn and in no acute distress. Cardiovascular: Regular rate and rhythm. No pulse deficits. Respiratory: No increased work of breathing, no retractions or nasal flaring. Abdomen/GI: Soft, non-tender MS/ Extremity: Pulses equal, no cyanosis. Neuro: Awake and alert, GCS 15 Vital Signs: 11:01 BP 141 / 88; Pulse 97; Resp 19; Temp 98.1(O); Pulse Ox 97% ; Weight 98.88 kg; Height 5 tm6 ft. 11 in. ; Pain 6/10; 12:00 BP 139 / 80; Pulse 91; Resp 19 S; Pulse Ox 100% on R/A; aa5 12:30 BP 131 / 83; Pulse 88; Resp 20; Pulse Ox 100% on R/A; tl4 13:30 BP 120 / 72; Pulse 88; Resp 16 S; Temp 97.6(TE); Pulse Ox 100% on R/A; aa5 14:30 BP 134 / 80; Pulse 85; Resp 18 S; Pulse Ox 100% on R/A; aa5 11:01 Body Mass Index 30.40 (98.88 kg, 180.34 cm) tm6 11:01 Pain Scale: Adult tm6 MDM: 11:02 Patient medically screened. rn 14:23 Differential diagnosis: acute myocardial infarction, acute pericarditis, coronary rn artery disease chest wall pain, costochondritis, esophagitis, gastritis, pleurisy, stable angina, unstable angina. HEART Score: History: Moderately Suspicious (1), ECG: Normal (0), Age: > or = 65 years (2), Risk Factors: > or = 3 Risk factors for atherosclerotic disease (2), Troponin: < or = 1 x Normal Limit (0), Total Score = 5. The patient was given aspirin in the Emergency Department. Data reviewed: vital signs, nurses notes, lab test result(s), EKG, radiologic studies, plain films, and as a result, I will admit patient. Consideration of Admission/Observation Patient was admitted/placed on observation. Escalation of care including admission/observation considered. Management of patient was discussed with the following: Primary Care Provider: Discussed case with Dr. Ervin, agrees to admit for cardiology consultation.. Counseling: I had a detailed discussion with the patient and/or guardian regarding the historical points, exam findings, and any diagnostic results supporting the discharge/admit diagnosis, lab results, radiology results, the need for further work-up and treatment in the hospital. 14:23 ED course: Patient chest pain-free. Troponin negative. No ischemia on ECG. Will admit rn for cardiac workup.. 04/14 11:09 Order name: Basic Metabolic Panel; Complete Time: 12:15 rn 04/14 11:09 Order name: CBC with Diff; Complete Time: 12:15 rn 04/14 11:09 Order name: NT PRO-BNP; Complete Time: 12:15 rn 04/14 11:09 Order name: PT-INR; Complete Time: 12:15 rn 04/14 11:09 Order name: Troponin HS; Complete Time: 12:15 rn 04/14 11:09 Order name: XRAY Chest (1 view) rn 04/14 11:09 Order name: Cardiac monitoring; Complete Time: : rn 04/14 11:09 Order name: EKG - Nurse/Tech; Complete Time: 11: rn 04/14 11:09 Order name: IV Saline Lock; Complete Time: : rn 04/14 11:09 Order name: Labs collected and sent; Complete Time: : rn 04/14 11:09 Order name: O2 Per Protocol; Complete Time: : rn 04/14 11:09 Order name: O2 Sat Monitoring; Complete Time: : rn Administered Medications: 12:32 Drug: Aspirin PO 325 mg PO once Route: PO; tl4 12:46 Follow up: Response: No adverse reaction tl4 Disposition Summary: 04/14/24 14:25 Hospitalization Ordered Notes: Hospitalization Status: Observation rn Provider: Terell Ervin rn Location: Telemetry/MedSurg (observation)(04/14/24 14:25) rn Condition: Stable(04/14/24 14:25) rn Problem: new(04/14/24 14:25) rn Symptoms: have improved(04/14/24 14:25) rn Bed/Room Type: Standard rn Room Assignment: 232(04/14/24 15:05) [facility] Diagnosis - Chest pain, unspecified(04/14/24 14:25) rn Forms: - Medication Reconciliation Form rn - SBAR form rn - Leadership Thank You Letter rn Signatures: Dispatcher [employer] EDMS Edward Nagy MD MD rn Aguilar, Jose RN RN ja1 Khushboo [place] 6 Mason Santana RN RN 6 Mihai Sellers, RN RN tl4 Corrections: (The following items were deleted from the chart) 11:10 11:10 BASIC METABOLIC PANEL+C.LAB.BRZ ordered. EDMS EDMS 11:10 11:10 CBC+H.LAB.BRZ ordered. EDMS EDMS 11:10 11:10 PROBNP+C.LAB.BRZ ordered. EDMS EDMS 11:10 11:10 PROTIME (+INR)+COAG.LAB.BRZ ordered. EDMS EDMS 11:10 11:10 Troponin High Sensitivity+C.LAB.BRZ ordered. EDMS EDMS 11:10 11:10 Chest Single View+RAD.RAD.BRZ ordered. EDMS EDMS 14:24 14:24 Home rn rn 14:24 14:24 new rn rn 14:24 14:24 have improved rn rn 14:24 14:24 Stable rn rn 14:24 14:24 Chest pain, unspecified rn rn 14:32 14:25 rn 6 14:40 14:32 228 6 [facility] 15:05 14:40 216 6 [facility]
--- NOTE | 2024-04-14 14:25 | ER ---
Nurse's Notes [facility] Name: Gorge Schuler Age: 64 yrs Sex: Male : 1960 Arrival Date: 04/14/2024 Time: 10:51 Bed 4 Private MD: Diagnosis: Chest pain, unspecified Presentation: 04/14 11:02 Chief complaint: Patient states: chest pain starting around 0830, feels like someone tm6 standing on chest with a few sharp pains. Both legs feel like someone is squeezing them. Feels a little lightheaded. Coronavirus screen: Vaccine status: Patient reports receiving the 2nd dose of the covid vaccine. Ebola Screen: Patient negative for fever greater than or equal to 101.5 degrees Fahrenheit, and additional compatible Ebola Virus Disease symptoms Patient denies exposure to infectious person. Patient denies travel to an Ebola-affected area in the 21 days before illness onset. No symptoms or risks identified at this time. Initial Sepsis Screen: Does the patient meet any 2 criteria? No. Patient's initial sepsis screen is negative. Does the patient have a suspected source of infection? No. Patient's initial sepsis screen is negative. Risk Assessment: Do you want to hurt yourself or someone else? Patient reports no desire to harm self or others. Onset of symptoms was April 14, 2024 at 08:30. 11:02 Method Of Arrival: Wheelchair tm6 11:02 Acuity: SHEILA 3 tm6 Historical: - Allergies: 11:03 No Known Allergies; tm6 - PMHx: 11:03 diabetes mellitus; Hyperlipidemia; Hypertension; tm6 - PSHx: 11:03 Appendectomy; back; Stented artery; Cholecystectomy; tm6 - Immunization history:: Client reports receiving the 2nd dose of the Covid vaccine. - Infectious Disease History:: Denies. - Social history:: Smoking status: Patient/guardian denies using tobacco, the patient reports quitting approximately 10 years ago, Patient uses alcohol, on a daily basis. - Family history:: not pertinent. - Hospitalizations: : No recent hospitalization is reported. Screenin:[address] [facility] ED Fall Risk Assessment (Adult) History of falling in the last 3 months, aa5 including since admission No falls in past 3 months (0 pts) Confusion or Disorientation No (0 pts) Intoxicated or Sedated No (0 pts) Impaired Gait No (0 pts) Mobility Assist Device Used No (0 pt) Altered Elimination No (0 pt) Score/Fall Risk Level 0 - 2 = Low Risk Oriented to surroundings, Maintained a safe environment, Educated pt \T\ family on fall prevention, incl call for assistance when getting out of bed. Abuse screen: Denies threats or abuse. Nutritional screening: No deficits noted. Tuberculosis screening: No symptoms or risk factors identified. Assessment: 11:10 General: Appears comfortable, Behavior is calm, cooperative. Pain: Complains of pain in aa5 chest Pain does not radiate. Pain currently is 4 out of 10 on a pain scale. Quality of pain is described as aching, Pain began this morning Is continuous. Neuro: Level of Consciousness is awake, alert, obeys commands, Oriented to person, place, time, situation. Cardiovascular: Heart tones S1 S2 present Rhythm is regular. Respiratory: Airway is patent Respiratory effort is even, unlabored, Respiratory pattern is regular, symmetrical. GI: No signs and/or symptoms were reported involving the gastrointestinal system. Patient currently denies nausea, vomiting. : No signs and/or symptoms were reported regarding the genitourinary system. EENT: No signs and/or symptoms were reported regarding the EENT system. Derm: Skin is pink, warm \T\ dry. Musculoskeletal: Range of motion: intact in all extremities. 11:30 Reassessment: Patient is alert, oriented x 3, equal unlabored respirations, skin aa5 warm/dry/pink. Warm blankets provided to pt. . 12:30 Reassessment: Patient is alert, oriented x 3, equal unlabored respirations, skin aa5 warm/dry/pink. Patient denies pain at this time. Patient states feeling better. 14:00 Reassessment: Patient is alert, oriented x 3, equal unlabored respirations, skin aa5 warm/dry/pink. Patient denies pain at this time. 15:25 Reassessment: Patient is alert, oriented x 3, equal unlabored respirations, skin aa5 warm/dry/pink. Vital Signs: 11:01 BP 141 / 88; Pulse 97; Resp 19; Temp 98.1(O); Pulse Ox 97% ; Weight 98.88 kg; Height 5 tm6 ft. 11 in. ; Pain 6/10; 12:00 BP 139 / 80; Pulse 91; Resp 19 S; Pulse Ox 100% on R/A; aa5 12:30 BP 131 / 83; Pulse 88; Resp 20; Pulse Ox 100% on R/A; tl4 13:30 BP 120 / 72; Pulse 88; Resp 16 S; Temp 97.6(TE); Pulse Ox 100% on R/A; aa5 14:30 BP 134 / 80; Pulse 85; Resp 18 S; Pulse Ox 100% on R/A; aa5 11:01 Body Mass Index 30.40 (98.88 kg, 180.34 cm) tm6 11:01 Pain Scale: Adult tm6 ED Course: 10:53 Patient arrived in ED. ra3 11:01 Arm band placed on right wrist. EKG completed in triage. Results shown to MD. tm6 11:02 Edward Nagy MD is Attending Physician. rn 11:03 Triage completed. tm6 11:10 Patient has correct armband on for positive identification. Placed in gown. Bed in low aa5 position. Call light in reach. Side rails up X 1. Client placed on continuous cardiac and pulse oximetry monitoring. NIBP monitoring applied. radiation monitor on. Pulse ox on. NIBP on. 11:12 Akilah German, DAREN is Primary Nurse. aa5 11:23 Initial lab(s) drawn, by me, sent to lab. Inserted saline lock: 20 gauge in right aa5 antecubital area, using aseptic technique. Blood collected. Flushed with 10 mL NS. 11:56 XRAY Chest (1 view) In Process Unspecified. EDMS 14:24 Terell Ervin MD is Hospitalizing Provider. rn 15:20 No provider procedures requiring assistance completed. Patient did not have IV access aa5 during this emergency room visit. 15:20 Patient maintains SpO2 saturation greater than 95% on room air. aa5 Administered Medications: 12:32 Drug: Aspirin PO 325 mg PO once Route: PO; tl4 12:46 Follow up: Response: No adverse reaction tl4 Medication: 12:04 VIS not applicable for this client. aa5 Outcome: 14:24 Discharge ordered by . rn 14:25 Decision to Hospitalize by Provider. rn 15:25 Admitted to Tele accompanied by tech, family with patient, via wheelchair, with chart, aa5 15:25 Condition: stable aa5 15:25 Instructed on the need for admit, Demonstrated understanding of instructions, 15:31 Patient left the ED. ll1 Signatures: Dispatcher [employer] EDMS Edward Nagy MD MD rn Calderon, Audri RN RN aa5 Joselo Mary RN RN ll1 Mason Santana RN RN tm6 Mihai Sellers RN RN tl4 Dayan Pacheco 3 Corrections: (The following items were deleted from the chart) 12:06 11:10 Pain: Complains of pain in chest Pain does not radiate. Pain currently is 4 out aa5 of 10 on a pain scale. Quality of pain is described as aching, Pain began Is continuous, aa5
[2024-04-14] MEDS ORDERED: ONDANSETRON 4 MG/2 ML VIAL IV PRN (15:07)
[2024-04-14 15:50] VITALS: BMI 30.4
[2024-04-14] MEDS: NA CHLORIDE 0.9% 1,000 ML IV SCH (20:43)
[2024-04-14] MEDS: carvediloL 3.125 MG TAB PO SCH (20:44)
[2024-04-14] MEDS: ROSUVASTATIN 10 MG TAB PO SCH (20:44)
[2024-04-14] MEDS: ENOXAPARIN 40 MG/0.4 ML SQ SCH (20:45)
[2024-04-14] MEDS: INSULIN REGULAR (HUMAN) 100 UNIT/ML SQ SCH (21:00)
--- NOTE | 2024-04-14 23:47 | HP ---
Date of Admission: 04/14/2024 Chief Complaint: Chest pain. History Of Present Illness: This is a 64-year-old very pleasant male patient, who came into emergenc y room with complaints of chest pain. The patient has been under lot of stress lately and today he w as sitting at the desk during some paperwork and reported that all of a sudden he started to have thi s pain in the center of the lower part of the chest and little bit left to the sternal area. Describ es this pain as if somebody standing on his chest. Denies any associated symptoms like shortness of breath, nausea, vomiting, or diaphoresis. After a while since chest pain was not getting better, he decided to come to emergency room and after he arrived to emergency room, his chest pain resolved on its own without any intervention. Altogether, his chest pain might have lasted for almost 1 hour or so as he reports. He has not had any recurrence of chest pain after his presentation to the hospital . The patient was evaluated in the emergency room and subsequently admitted to hospital. EMELI ho called and notified me with this information and Cardiology consultation was requested from his ca rdiologist and Dr. Tian has evaluated him and he is planning to do cardiac catheterization tomorrow . When I saw him this evening, he was asymptomatic. Allergies: NO KNOWN ALLERGIES. Medications: Aspirin 81 mg daily, carvedilol 6.25 mg 2 times a day, Jardiance 25 mg daily, famotidin e 40 mg daily, Lantus 30 units daily at bedtime, iron 65 mg daily, rosuvastatin 40 mg daily in the ev ening, and Trulicity 4.5 mg subcutaneous injection once a week, his last injection was last week on . Review of Systems: Cardiovascular: As mentioned above. All other systems reviewed and negative. Past Medical History: Significant for diabetes mellitus type 2 with diabetic retinopathy, hypertensi on, mixed hyperlipidemia, coronary artery disease, diverticulosis, chronic kidney disease, benign pro static hypertrophy, known alcoholic fatty liver disease, and chronic kidney disease stage IIIB. 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 Family History: Significant for father , had throat cancer. Mother has diabetes. Social History: Prior history of smoking, not at present time. Use of alcohol, drinks beer few time s a week. Physical Examination: Vital Signs: Height 5 feet 11 inches, weight 218 pounds, temperature 98.1, pulse 88, respiratory rat e 20, blood pressure 131/83, oxygen saturation 100% on room air. General: Awake, alert, oriented, not in distress. HEENT: Head atraumatic, normocephalic. Conjunctivae nonerythematous. Sclerae white. Mouth, no thr ush or edema noted. Ears/Nose, no mass, lesion, discharge noted. Neck: Supple. No JVD, lymph nodes, bruit, thyromegaly noted. Lungs: Bilateral good equal air entry. Clear to auscultation. No rhonchi. No rales. Heart: Normal heart sounds, no murmur or gallop. Abdomen: Soft, bowel sounds normal. No guarding, rigidity, tenderness, mass, hepatosplenomegaly, dis tention, or bruit noted. Extremities: No leg edema. No calf tenderness. Skin: No rash, ulcer, cellulitis. Lymphatics: No lymph node enlargement in neck, supraclavicular, infraclavicular region. Neuro: No focal neurological deficit. Chest: Unremarkable. External Genitalia: Deferred. Rectal: Deferred. Laboratory Data: EKG, . Chest x-ray, no acute cardiopulmonary changes. WBC 8.5, hemoglob in 13.7, platelets 130. Sodium 131, potassium 3.6, chloride 100, bicarb 22, BUN 16, creatinine 1.93, glucose 155. Initial troponin 6.6, second troponin 6.9, proBNP 113. Impression: 1.Angina. 2.Coronary artery disease. 3.Thrombocytopenia. 4.Chronic kidney disease stage IIIB. 5.Type 2 diabetes mellitus with chronic kidney disease. 6.Hypertension. 7.Mixed hyperlipidemia. 8.Benign prostatic hypertrophy. 9.Thrombocytopenia. Plan: We will go ahead and admit the patient to hospital for further evaluation and management of th is problem. So far, the patient is asymptomatic and has not had any recurrence of chest pain after h ospital admission and cardiac enzymes are negative x2. We will get serial cardiac enzymes per order. Cardiology consultation has been requested and Dr. Tian has seen him and he is planning to do car diac cath tomorrow. We will go ahead and start him on IV fluid and try to keep him well hydrated con sidering cardiac cath procedure tomorrow. For diabetes, we will go ahead and manage with sliding sca le insulin and he is due to have Trulicity injection today, but I have advised him to take it either tomorrow or day after tomorrow depending on his discharge. For hyperlipidemia, we will continue stat in therapy per order and no need for further intervention. For coronary artery disease, he takes asp irin. We will continue that as well. Total time spent 80 minutes that includes review of last hospi lida record from June 2022, last office visit record from April 07, 2024, review of emergency arpan m records, communication with emergency room physician, and performing today's evaluation and managem ent. FABRIZIO/MODL Voice ID: [id number]
[2024-04-15] MEDS: ASPIRIN EC 81 MG TAB PO ONE (05:54)
[2024-04-15] MEDS: ASPIRIN EC 81 MG TAB PO SCH (06:00)
[2024-04-15 06:13] LABS: Absolute Basophils 0.1 K/uL (0-0.5); Absolute Eosinophils 0.2 K/uL (0-0.5); Absolute Lymphocytes (CBC) 1.4 K/uL (0.7-4.9); Absolute Monocytes 0.9 K/uL (0.1-1.3); Absolute Neutrophil 3.5 K/uL (1.8-8.0); Basophils % 1.1 % (0-1.3); Eosinophils % 2.8 % (0-4.4); Hematocrit 37.9 % (39.6-49.0); Hemoglobin 12.8 g/dL (13.6-17.9); Lymphocytes % 23.5 % (15.3-44.8); MCH 31.4 pg (27.0-35.0); MCHC 33.9 g/dL (32.0-36.0); MCV 92.8 fL (80-100); MPV 7.3 fL (7.6-11.3); Monocytes % 15.3 % (3.3-12.3); Neutrophils % 57.3 % (41.7-73.7); Nucleated Red Blood Cells % 0.1 % (0-0); Platelets 132 thou/uL (152-406); RBC Red Blood Cell Count 4.08 M/uL (4.33-5.43); Red Cell Distribution Width 14.4 % (12.1-15.2)
[2024-04-15 06:25] LABS: Anion Gap 12.9 mEq/L (5.0-15.0); Potassium 3.9 mEq/L (3.5-5.1)
[2024-04-15] MEDS ORDERED: HEPA 1000U/500MLS 2,000 UNIT/1,000 ML BAG IV ONE (06:47)
[2024-04-15] MEDS ORDERED: HEPARIN 10,000 UNIT/10 ML VIAL IV ONE ×2 (06:48→09:04)
[2024-04-15] MEDS ORDERED: LIDOCAINE 1% 20 ML MDV ONE (06:48)
[2024-04-15] MEDS ORDERED: MIDAZOLAM HCL 2 MG/2 ML INJ ONE (06:48)
[2024-04-15] MEDS ORDERED: FENTANYL CITR 100 MCG/2 ML ONE (06:48)
[2024-04-15] MEDS ORDERED: ATROPINE SULF 1 MG/10 ML SYR IV ONE (06:48)
[2024-04-15] MEDS ORDERED: ASPIRIN 325 MG TAB ONE (06:49)
[2024-04-15] MEDS ORDERED: HEPARIN 5000 UNIT/ML 1 ML VIAL ONE (06:49)
[2024-04-15] MEDS ORDERED: TICAGRELOR 90 MG TABLET PO ONE (06:49)
[2024-04-15] MEDS ORDERED: CLOPIDOGREL 75 MG TABLET ONE (06:49)
[2024-04-15] MEDS ORDERED: ROSUVASTATIN 10 MG TAB PO SCH (09:00)
[2024-04-15] MEDS ORDERED: FAMOTIDINE 20 MG TAB PO SCH (09:00)
[2024-04-15 12:21] VITALS: BP 112/63; O2SAT 100
--- NOTE | 2024-04-15 13:12 | P.CNS ---
Date of Consult: 04/15/24 Chief Complaint: chest pain History of Present Illness: Patient with PMH of CAD s/p PCI Diagonal 2021, moderate LAD disease, HTN, HLD, DM, presented with worsening chest pain, pressure in nature, radiating to his arm and back, no SOB, no BOONE, no palpitations, no syncope. Allergies No Known Allergies Allergy (Verified 01/28/24 02:36) Home medications list reviewed: Yes Home Medications: RX: Rosuvastatin [Crestor*] 40 mg PO DAILY 03/01/13 Insulin Glargine Human [Lantus*] 40 units SQ BEDTIME 01/29/15 carvediloL [Coreg] 6.25 mg PO BID 01/29/15 RX: Aspirin [Aspir-Low] 81 mg PO DAILY 12/03/17 Dulaglutide [Trulicity] 3 mg SQ EVERY 7TH DAY 01/28/24 Empagliflozin [Jardiance] 25 mg PO DAILY 01/28/24 RX: Famotidine 40 mg PO DAILY 01/28/24 - Past Medical/Surgical History Diabetic: Yes -: DM -: HTN -: Hyperlipidemia -: cardiac stent -: cholecystectomy -: herniated disk sx -: hernia repair -: stented artery - Social History Smoking Status: Current some day smoker Alcohol use: No CD- Drugs: No Caffeine use: No Place of Residence: Home Review of Systems 10-point ROS is otherwise unremarkable Physical Examination Temp Pulse Resp BP Pulse Ox 97.5 F 80 16 112/63 99 04/15/24 09:20 04/15/24 12:05 04/15/24 12:05 04/15/24 12:05 04/15/24 04:00 General: Alert, In no apparent distress HEENT: Atraumatic, PERRLA, Mucous membr. moist/pink, EOMI, Sclerae nonicteric Neck: Supple, 2+ carotid pulse no bruit, No LAD, Without JVD or thyroid abnormality Respiratory: Clear to auscultation bilaterally, Normal air movement Cardiovascular: Regular rate/rhythm, Normal S1 S2 Gastrointestinal: Normal bowel sounds, No tenderness Musculoskeletal: No tenderness Integumentary: No rashes Neurological: Normal gait, Normal speech, Normal tone, Normal affect Lymphatics: No axilla or inguinal lymphadenopathy - Problems (1) CAD (coronary artery disease) Current Visit: Yes Status: Acute Plan: Coronary angiogram done today and shows significant distal RCA into RPDA disease s/p PCI with Synergy 4.0x16 mm ANGELA, also found to have significant mid LAD and ostial diagonal disease. ASA 81 mg daily for life. Brilinta 90 mg po BID for 12 months Crestor 40 mg daily Staged PCI of LAD/Diagonal bifurcation with Shock wave need to be scheduled in 4-6 weeks. (2) Hyperlipidemia Current Visit: No Status: Acute Plan: Crestor 40 mg daily (3) Hypertension Current Visit: No Status: Acute Plan: continue Coreg 6.25 mg po BID
[2024-04-15 13:23] VITALS: TEMP 97.2
--- NOTE | 2024-04-15 14:41 | EKG ---
Test Date: 2024-04-14 Test Time: 10:59:48 Anthropometrist: GOOD MEASUREMENT RESULTS: Intervals: Rate: 97 NE: 170 QRSD: 82 QT: 354 QTc: 449 [place]: P: 31 NE: 170 QRS: 51 T: 100 INTERPRETIVE STATEMENTS: Normal sinus rhythm Normal ECG Compared to ECG 01/27/2024 20:08:38 ST (T wave) deviation no longer present Electronically Signed On 04-15-24 14:38:51 CDT by Mehrdad Tian
--- NOTE | 2024-04-15 20:30 | DS ---
Date of Discharge: 04/15/2024 Disposition: The patient will be discharged to go home. Physical Examination: HEENT: Unremarkable. Lungs: Clear to auscultation. Heart: Sounds normal. Abdomen: Soft. Bowel sounds normal. No guarding, rigidity, tenderness, distention. Extremities: No leg edema. Laboratory Data: White count yesterday 8.5, hemoglobin 13.7, platelets 130. Today, white count 6.1, hemoglobin 12.8, platelets 132. For chemistry today, sodium 133, potassium 3.9, chloride 103, bicar b 21, BUN 19, creatinine 2.02, glucose 174. Upon admission, BUN was 16, creatinine 1.93. His cardia c enzymes, troponin remains normal. Final Diagnoses: 1.Angina. 2.Coronary artery disease. 3.Thrombocytopenia. 4.Chronic kidney disease stage IIIB. 5.Type 2 diabetes mellitus with chronic kidney disease. 6.Hypertension. 7.Mixed hyperlipidemia. 8.Benign prostatic hypertrophy. Hospital Course: This is a 64-year-old pleasant male patient, who came into emergency room with comp laints of chest pain. Please see dictated H and P for more information. After the patient was evalu ated in the emergency room, he was admitted to the hospital. His NC was ruled out by getting serial cardiac enzymes. Zigzag Elastic Attacher Dr. Tian was consulted and he took the patient to cardiac asset availability leader t lambert and found out that he had 99% stenotic lesion in the distal RCA. With some great difficulty, he was able to open it up and put a stent in this location. The patient also has about 70% to 75% sten osis proximal to his old stent in the LAD and this probably will need some intervention down the line and the patient will continue to follow with lidar analyst regarding this. The patient received 1 do se of Brilinta after this cath procedure and I did communicate details with Dr. Tian. Ideally, he would like for the patient to continue to take Brilinta 90 mg 2 times a day, but for some reason, if the patient cannot afford it and cannot get it, then he wants the patient to take 600 mg of clopidogr el as a loading dose which will be this evening and then 75 mg daily starting tomorrow. I have given all this instructions personally to the patient and explained him importance of not to miss this ant i-platelet therapy at all. The patient was advised to keep himself well hydrated as well as he was i nstructed not to carry anything using his right hand anything heavier than a small glass of water and not to use right hand to pull or push anything for next 1 week. He was also instructed to come see me next week for followup. Discharge Medications And Instructions: 1.Continue all prior home medications. 2.Start Brilinta 90 mg 2 times a day starting this evening and I will send the prescription to his mario reveles, but for some reason, if you are not able to tow picker and start Brilinta, then this evening th e patient to take clopidogrel 75 mg tablet and he should take 8 tablets all at 1 time this evening an d then starting tomorrow 1 tablet daily and the patient has clopidogrel at home as this particular me dication was just recently discontinued by his lidar analyst about a month ago or so and the patient w ill contact my office when he needs a refill on clopidogrel. Follow up at my office next week and fo llow up with Dr. Tian in 2 weeks. Total time spent today 55 minutes. FABRIZIO/MODL Voice ID: [id number] Report ID: [id number]
[2024-04-15] MEDS ORDERED: TICAGRELOR 90 MG TABLET PO SCH (21:00)
--- NOTE | 2024-04-16 | OP ---
Date of Procedure: 04/15/2024 Surgeon: Mehrdad Tian Procedures Performed: 1.Left heart catheterization. 2.Selective coronary angiogram. 3.PCI of the distal RCA into RPDA with Synergy 4.0 x 16 mm drug-eluting stent. Indication For Procedure: Unstable angina. Complications: None. Estimated Blood Loss: Less than 50 cc. Access: Right radial, closed by TR band. Sedation Time: 60 minutes with 1 of Versed and 50 of fentanyl. Description Of Procedure: After risks, benefits, and alternatives were explained to the patient, the patient agreed to proceed with the procedure and signed informed consent. The patient was brought b ack to the director of cardiac cath lab, prepped and draped in sterile fashion. Time-out was performed. Sedation was ad ministered. Next, right radial access was obtained. 5-[place] 4 catheter was advanced over a w tracy to the LV cavity. LVEDP was obtained. Pullback did not show any gradient. Same catheter was us ed for selective angiogram of the left and right coronary systems. Later on, that catheter was excha nged for a JR4 guide. Heparin was administered. ACT was therapeutic. Runthrough wire was passed ac ross the lesion and pre-dilated the lesion with NC 3.0 mm balloon. Next, it was hard to deliver anot her NC balloon, so a GuideLiner was used and pre-dilated the lesions again with an NC 3.5 mm balloon, but the balloon was not yielding, so we decided to do shockwave balloon. Multiple impulses were del ivered. We used the shockwave 3.5 mm balloon that was inflated up to 4 atmospheres with multiple imp ulses that delivered at the site of the narrowing. Next, the lesion was also pre-dilated again with an NC 4.0 and 4.5 mm balloons. Next, Synergy 4.0 x 16 mm drug-eluting stent was placed across the le cain that was postdilated with an NC 5 mm balloon. Final angiogram shows RENAE-3 flow. At the end of the procedure, catheter was removed over the J-wire, sheath was removed, and TR band was applied. H emostasis was achieved and the patient was moved back to recovery in stable condition. Findings: 1.Left main, normal. 2.LAD, proximal mild luminal irregularities, mid focal calcified 70% disease at its origin of dialashaen al 1, then mild luminal irregularities. Distal artery is small. 3.Diagonal 1, ostial 90% disease and proximal stent is patent. 4.Left circ, small mild luminal irregularities. 5.RCA, large, ectatic, heavily calcified with distal 90% disease extending into proximal RPDA. PCI done with Synergy 4.0 x 16 mm drug-eluting stent. Assessment: 1.Significant distal RCA into proximal RPDA disease, status post PCI with Synergy 4.0 x 16 mm drug-e luting stent. 2.Significant mid LAD/ostial diagonal disease, this is a bifurcation disease with heavy calcificatio n, plan for staged PCI with shockwave hysterectomy to be done in [facility] as this would need a bifurcation stenting. Plan: 1.Aspirin 81 mg daily for life. 2.Brilinta 180 x1 was given in the director of cardiac cath lab, continue Brilinta 90 mg p.o. b.i.d. for 12 months. 3.Continue aggressive medical treatment for CAD. TOMMY/MOLINA Voice ID: [id number] Report ID: [id number]
== END 2024-04-15 15:25 | disposition home or self-care (01) ==
LOC: ER 10:51 → ERHOLD 14:26 → 2ND 15:19
PROVIDERS: ADMIT Internal Medicine; ATTEND Internal Medicine
PROC: 4A023N7 Measurement of Cardiac Sampling and Pressure, Left Heart, Percutaneous Approach (ICD-10-PCS; principal; 2024-04-15)
PROC: B2111ZZ Fluoroscopy of Multiple Coronary Arteries using Low Osmolar Contrast (ICD-10-PCS; 2024-04-15)
DX: I25.110 Atherosclerotic heart disease of native coronary artery with unstable angina pectoris (principal); I12.9 Hypertensive chronic kidney disease with stage 1 through stage 4 chronic kidney disease, or unspecified chronic kidney disease; E11.22 Type 2 diabetes mellitus with diabetic chronic kidney disease; N18.32 Chronic kidney disease, stage 3b; D69.6 Thrombocytopenia, unspecified; E78.2 Mixed hyperlipidemia; E11.319 Type 2 diabetes mellitus with unspecified diabetic retinopathy without macular edema; N40.0 Benign prostatic hyperplasia without lower urinary tract symptoms; K57.90 Diverticulosis of intestine, part unspecified, without perforation or abscess without bleeding; K70.0 Alcoholic fatty liver; Z95.5 Presence of coronary angioplasty implant and graft; Z87.891 Personal history of nicotine dependence; Z79.82 Long term (current) use of aspirin; Z79.84 Long term (current) use of oral hypoglycemic drugs; Z79.4 Long term (current) use of insulin; Z79.85 Long-term (current) use of injectable non-insulin antidiabetic drugs; Z79.899 Other long term (current) drug therapy; Z90.49 Acquired absence of other specified parts of digestive tract; Z83.3 Family history of diabetes mellitus; Z80.0 Family history of malignant neoplasm of digestive organs
CPT/HCPCS: 93005; 85025 ×2; 80048 ×2; 36415; 85610; 82947 ×2; 85347 ×3; 84484 ×4; 83880; 71045; 93458; 76937; 99285; C1893; Q9967; C1725; C9600; C1724; J1644; J1650; J2250; J3010; J7030; G0378 ×3; 99152; J0461; J2001

== ENCOUNTER 2024-07-06 09:16 | Inpatient (IN) | payer OTHER ==
--- NOTE | 2024-07-06 10:13 | RAD REPORT ---
EXAM: CT brain without contrast HISTORY: WEAKNESS COMPARISON: 07/05/2009 TECHNIQUE: Multiple contiguous axial images were obtained and a CT of the brain without contrast. Sag ittal and coronal reformats were performed. One or more of the following dose reduction techniques were used: Automated exposure control, adjust ment of the mA and/or kV according to patient size, and/or iterative reconstruction. FINDINGS: No evidence of hydrocephalus, intracranial hemorrhage, or extra-axial fluid collection. The brain is normal in morphology. No evidence of midline shift or areas of brain edema. The calvarium is intact. The visualized paranasal sinuses and mastoid air cells are essentially clear . IMPRESSION: No evidence of acute intracranial abnormality.
[2024-07-06 10:21] LABS: Absolute Basophils 0.1 K/uL (0-0.5); Absolute Eosinophils 0.2 K/uL (0-0.5); Absolute Lymphocytes (CBC) 1.2 K/uL (0.7-4.9); Absolute Monocytes 0.9 K/uL (0.1-1.3); Absolute Neutrophil 5.6 K/uL (1.8-8.0); Basophils % 0.9 % (0-1.3); Hematocrit 32.8 % (39.6-49.0); Hemoglobin 11.2 g/dL (13.6-17.9); Lymphocytes % 15.5 % (15.3-44.8); MCH 33.5 pg (27.0-35.0); MCHC 34.1 g/dL (32.0-36.0); MCV 98.3 fL (80-100); MPV 7.3 fL (7.6-11.3); Monocytes % 11.8 % (3.3-12.3); Neutrophils % 69.8 % (41.7-73.7); Nucleated Red Blood Cells % 0.1 % (0-0); Platelets 238 thou/uL (152-406); RBC Red Blood Cell Count 3.33 M/uL (4.33-5.43); Red Cell Distribution Width 14.3 % (12.1-15.2)
[2024-07-06 10:28] LABS: PT Prothrombin Time 10.9 SECONDS (9.4-12.5); PTT, Activated Partial Thromb 30.5 SECONDS (24.3-36.9); Protime INR 0.97
[2024-07-06 10:40] LABS: Albumin 3.2 g/dL (3.4-5.0); Albumin/Globulin Ratio 0.7 (1.1-1.8); Globulin 4.8 g/dL (2.3-3.5)
--- NOTE | 2024-07-06 11:03 | RAD REPORT ---
EXAMINATION: ONE VIEW CHEST XR CLINICAL INDICATION: weakness TECHNIQUE: Frontal chest projection is submitted. Examination is limited by patient positioning and t echnique. COMPARISON: 04/14/2024 FINDINGS: The lungs are well inflated and clear. The heart is normal in size. No displaced fractures identified . IMPRESSION: No acute intrathoracic abnormalities.
[2024-07-06 11:27] LABS: Specific Gravity 1.022 (1.005-1.030); Sqamous Epithelial <5 /HPF (None Seen); Urine Bacteria None Seen /HPF (<20); Urine Bilirubin NEGATIVE (Negative); Urine Blood 3+ (OVER) (Negative); Urine Clarity Clear (Clear); Urine Color Light-Brown (Yellow); Urine Culture Reflex Order NOT NEEDED; Urine Glucose 4+ (Over) (Negative); Urine Ketones TRACE (Negative); Urine Microscopic Reflex YN ORDER UMIC; Urine Nitrite NEGATIVE (Negative); Urine Protein 3+ (Negative); Urine Urobilinogen Normal (Normal); Urine WBC <5 /HPF (<5)
--- NOTE | 2024-07-06 12:00 | RAD REPORT ---
EXAMINATION: CT ABDOMEN AND PELVIS WITHOUT CONTRAST CLINICAL INDICATION: dark urine, abnormal LFTs TECHNIQUE: CT abdomen and pelvis was performed, without IV contrast, as per department protocol. Axia l, sagittal and coronal reconstructions were obtained. One or more of the following dose reduction techniques were used: Automated exposure control, adjustment of the mA and kV according to the patien t size, and iterative reconstruction. Unless otherwise specified, incidental findings do not require dedicated imaging follow-up. COMPARISON: 06/03/2013 FINDINGS: The lack of intravenous contrast limits the sensitivity of this exam for evaluation of solid visceral organs, vascular structures, and retroperitoneum. LOWER CHEST: The visualized lung bases are clear. LIVER:Normal in size and contour. No focal lesion. Cholecystectomy clips. SPLEEN: Normal size. No focal lesion. PANCREAS: No mass, ductal dilation, or dalton-pancreatic fluid. ADRENALS: Normal; no mass. KIDNEYS AND URETERS: Normal size and contour. No hydronephrosis. URINARY BLADDER: Normal contour. Slight thickening of the anterior urinary bladder wall noted which i s indeterminant due to lack of complete distention. GASTROINTESTINAL TRACT: No evidence of bowel obstruction, significant free fluid, free air or abscess . Sigmoid diverticulosis coli is present without diverticulitis. APPENDIX: Normal appendix. LYMPH NODES: No lymphadenopathy. MUSCULOSKELETAL: Mild lower lumbar degenerative changes. ADDITIONAL FINDINGS: Moderate to large ventral hernia containing fat. Fascial defect of 12 mm noted. IMPRESSION: No acute or concerning abnormalities in the abdomen or pelvis, with evaluation limited by lack of IV contrast.
--- NOTE | 2024-07-06 13:24 | ER ---
Nurse's Notes [facility] Name: Gorge Schuler Age: 64 yrs Sex: Male : 1960 Arrival Date: 07/06/2024 Time: 09:16 Bed 6 Private MD: Diagnosis: Muscle weakness (generalized);Dehydration Presentation: 07/06 09:29 Chief complaint: Patient states: Sent in by Dr. Ervin for leg weakness and dark urine. ll1 Coronavirus screen: Client denies travel out of the [place] in the last 14 days. fatigue, muscle pain, Client presents with at least one sign or symptom that may indicate coronavirus-19. Standard/surgical mask placed on the client. Ebola Screen: Patient denies travel to an Ebola-affected area in the 21 days before illness onset. Initial Sepsis Screen: Does the patient meet any 2 criteria? No. Patient's initial sepsis screen is negative. Does the patient have a suspected source of infection? No. Patient's initial sepsis screen is negative. Risk Assessment: Do you want to hurt yourself or someone else? Patient reports no desire to harm self or others. Onset of symptoms was July 04, 2024. 09:29 Method Of Arrival: Wheelchair ll1 09:29 Acuity: SHEILA 3 ll1 Triage Assessment: 09:29 General: Appears uncomfortable, Behavior is calm, cooperative, appropriate for age. ll1 Pain: Denies pain. Neuro: Reports weakness. : Reports dark colored urine. Musculoskeletal: Reports weakness in right leg and left leg. Historical: - Allergies: 09:23 No Known Allergies; ll1 - PMHx: 09:23 diabetes mellitus; Hyperlipidemia; Hypertension; ll1 - PSHx: 09:23 Appendectomy; back; Cholecystectomy; Stented artery; ll1 - Immunization history:: Adult Immunizations up to date. - Infectious Disease History:: Denies. - Social history:: Smoking status: Patient denies any tobacco usage or history of. - Family history:: not pertinent. - Hospitalizations: : No recent hospitalization is reported. Screenin:24 [facility] ED Fall Risk Assessment (Adult) History of falling in the last 3 months, rs5 including since admission No falls in past 3 months (0 pts) Confusion or Disorientation No (0 pts) Intoxicated or Sedated No (0 pts) Impaired Gait No (0 pts) Mobility Assist Device Used No (0 pt) Altered Elimination No (0 pt) Score/Fall Risk Level 0 - 2 = Low Risk Oriented to surroundings, Maintained a safe environment. Abuse screen: Denies threats or abuse. Nutritional screening: No deficits noted. Tuberculosis screening: No symptoms or risk factors identified. Assessment: 09:24 General: Appears in no apparent distress. uncomfortable, Behavior is calm, cooperative. rs5 09:24 Pain: Denies pain. Neuro: Level of Consciousness is awake, alert, obeys commands, rs5 Oriented to person, place, time, situation. Cardiovascular: Patient's skin is warm and dry. Respiratory: Airway is patent Respiratory effort is even, unlabored, Respiratory pattern is regular, symmetrical. GI: Abdomen is round non-distended, Abd is soft and non tender X 4 quads. : No signs and/or symptoms were reported regarding the genitourinary system. EENT: No signs and/or symptoms were reported regarding the EENT system. Derm: Skin is intact, Skin is pink, warm \\T\\ dry. Musculoskeletal: Range of motion: limited in left leg and right leg pt states "I feel that my right leg is weaker than my right ". 09:47 Reassessment: Patient and/or family updated on plan of care and expected duration. Pain rs5 level reassessed. Patient is alert, oriented x 3, equal unlabored respirations, skin warm/dry/pink. 11:01 Reassessment: Patient and/or family updated on plan of care and expected duration. Pain rs5 level reassessed. Patient is alert, oriented x 3, equal unlabored respirations, skin warm/dry/pink. 12:15 Reassessment: Patient and/or family updated on plan of care and expected duration. Pain rs5 level reassessed. Patient is alert, oriented x 3, equal unlabored respirations, skin warm/dry/pink. 13:37 Reassessment: Patient and/or family updated on plan of care and expected duration. Pain rs5 level reassessed. Patient is alert, oriented x 3, equal unlabored respirations, skin warm/dry/pink. Vital Signs: 09:29 BP 132 / 68; Pulse 115; Resp 18; Temp 97.2; Pulse Ox 92% on R/A; Weight 97.98 kg; ll1 Height 5 ft. 11 in. ; Pain 0/10; 09:47 BP 121 / 79; Pulse 84; Resp 17; Pulse Ox 94% on R/A; rs5 11:39 BP 112 / 68; Pulse 75; Resp 15; Pulse Ox 100% ; ko1 12:23 BP 115 / 74; Pulse 77; Resp 17; Pulse Ox 96% on R/A; rs5 13:15 BP 112 / 68; Pulse 75; Resp 15; Pulse Ox 100% ; ko1 09:29 Body Mass Index 30.13 (97.98 kg, 180.34 cm) ll1 09:29 Pain Scale: Adult ll1 ED Course: 09:18 Patient arrived in ED. mr 09:18 Edward Nagy MD is Attending Physician. rn 09:23 Arm band placed on Patient placed in an exam room, on a stretcher. ll1 09:24 Edith Parker, DAREN is Primary Nurse. ko1 09:24 Patient has correct armband on for positive identification. Placed in gown. Bed in low rs5 position. Call light in reach. Side rails up X2. 09:24 No provider procedures requiring assistance completed. rs5 09:30 Triage completed. ll1 09:33 Inserted saline lock: 20 gauge in right antecubital area, using aseptic technique. rs5 Blood collected. Flushed with 10 mL NS. 09:52 CT Head Brain wo Cont In Process Unspecified. EDMS 10:27 Blood Culture Adult (2) Sent. ko1 10:27 CMP Sent. ko1 10:27 Lactate w/ 2H reflex if indic. Sent. ko1 10:27 Protime (+inr) Sent. ko1 10:27 Ptt, Activated Sent. ko1 10:53 Chest Single View XRAY In Process Unspecified. EDMS 11:10 Urinalysis w/ reflexes Sent. ko1 11:37 Abdomen In Process Unspecified. EDMS 11:39 Provided Education on: labs. Client placed on continuous cardiac and pulse oximetry ko1 monitoring. NIBP monitoring applied. youth nutritional monitor on. Door closed. Noise minimized. Lights dimmed. Warm blanket given. Pillow given. 13:23 Terell Ervin MD is Hospitalizing Provider. rn 14:01 Patient admitted, IV remains in place. rs5 Administered Medications: No medications were administered Medication: 11:39 VIS not applicable for this client. ko1 Outcome: 13:23 Decision to Hospitalize by Provider. rn 14:01 Admitted to ER Hold. Please see [facility] for further documentation. rs5 14:01 Condition: stable rs5 14:01 Discharge instructions given to patient, family, Instructed on discharge instructions, follow up and referral plans. Demonstrated understanding of instructions, follow-up care, 17:41 Patient left the ED. jb4 Signatures: Dispatcher [employer] EDMS Thais Grullon, Reg Reg mr Edward Nagy MD MD rn Bryson, James, RN RN jb4 Joselo Mary RN RN ll1 Edith Parker RN RN ko1 Baudilio Albarado RN RN rs5
--- NOTE | 2024-07-06 13:24 | EDPHYS ---
Physician Documentation [facility] Name: Gorge Schuler Age: 64 yrs Sex: Male : 1960 Arrival Date: 07/06/2024 Time: 09:16 Bed 6 Private MD: ED Physician Edward Nagy HPI: 07/06 10:54 This 64 yrs old Male presents to ER via Wheelchair with complaints of weakness. rn 10:54 Patient reports generalized weakness, worse bilateral lower extremities, right leg rn feels a little worse than left. Has been going on for the last 3 days. No fever or chills. No vomiting or diarrhea. No chest pain or shortness of breath. No abdominal pain. Denies any focal numbness. Does report dark urine. Sent in by Dr. Ervin for further evaluation. Denies blood in stool.. Onset: The symptoms/episode began/occurred 3 day(s) ago. Severity of symptoms: At their worst the symptoms were moderate in the emergency department the symptoms are unchanged. The patient has not experienced similar symptoms in the past. Patient reports generalized weakness.. Historical: - Allergies: 09:23 No Known Allergies; ll1 - PMHx: 09:23 diabetes mellitus; Hyperlipidemia; Hypertension; ll1 - PSHx: 09:23 Appendectomy; back; Cholecystectomy; Stented artery; ll1 - Immunization history:: Adult Immunizations up to date. - Infectious Disease History:: Denies. - Social history:: Smoking status: Patient denies any tobacco usage or history of. - Family history:: not pertinent. - Hospitalizations: : No recent hospitalization is reported. ROS: 10:54 Constitutional: Negative for fever, chills, and weight loss, Cardiovascular: Negative rn for chest pain, palpitations, and edema, Respiratory: Negative for shortness of breath, cough, wheezing, and pleuritic chest pain, Abdomen/GI: Negative for abdominal pain, nausea, vomiting, diarrhea, and constipation, MS/Extremity: Negative for injury and deformity, Skin: Negative for injury, rash, and discoloration, Neuro: Negative for headache, numbness, tingling, and seizure Exam: 10:54 Constitutional: This is a well developed, well nourished patient who is awake, alert, rn and in no acute distress. ENT: Dry mucous membranes Cardiovascular: Regular rate and rhythm overhear him besides this well. No pulse deficits. Respiratory: No increased work of breathing, no retractions or nasal flaring. Abdomen/GI: Soft, non-tender Skin: Warm, dry MS/ Extremity: Pulses equal, no cyanosis. Neurovascular intact. Neuro: Awake and alert, GCS 15, oriented to person, place, time, and situation. Cranial nerves II-XII grossly intact. Bilateral lower extremity weakness with right leg more pronounced weakness than left. Vital Signs: 09:29 BP 132 / 68; Pulse 115; Resp 18; Temp 97.2; Pulse Ox 92% on R/A; Weight 97.98 kg; ll1 Height 5 ft. 11 in. ; Pain 0/10; 09:47 BP 121 / 79; Pulse 84; Resp 17; Pulse Ox 94% on R/A; rs5 11:39 BP 112 / 68; Pulse 75; Resp 15; Pulse Ox 100% ; ko1 12:23 BP 115 / 74; Pulse 77; Resp 17; Pulse Ox 96% on R/A; rs5 13:15 BP 112 / 68; Pulse 75; Resp 15; Pulse Ox 100% ; ko1 09:29 Body Mass Index 30.13 (97.98 kg, 180.34 cm) ll1 09:29 Pain Scale: Adult ll1 MDM: 09:19 Medical Screening Exam initiated rn 13:21 Differential Diagnosis Dehydration, acute kidney injury, electrolyte disturbance, liver rn abnormality. Data reviewed: vital signs, nurses notes, lab test result(s), radiologic studies, CT scan, plain films, and as a result, I will admit patient. Consideration of Admission/Observation Patient was admitted/placed on observation. Escalation of care including admission/observation considered. Management of patient was discussed with the following: Primary Care Provider: Case discussed with PCP Dr. Ervin, would like patient admitted to the hospital with continuation of his aspirin and Brilinta as well as NS 100 mL/h.. Counseling: I had a detailed discussion with the patient and/or guardian regarding the historical points, exam findings, and any diagnostic results supporting the discharge/admit diagnosis, lab results, radiology results, the need for further work-up and treatment in the hospital. Response to treatment: the patient's symptoms have markedly improved after treatment. ED course: Patient markedly improved strength with fluids.. 07/06 09:33 Order name: Blood Culture Adult (2) rn 07/06 09:33 Order name: CBC with Diff; Complete Time: 10:45 rn 07/06 09:33 Order name: CMP; Complete Time: 10:45 rn 07/06 09:33 Order name: Lactate w/ 2H reflex if indic.; Complete Time: 11:13 rn 07/06 09:33 Order name: Protime (+inr); Complete Time: 10:45 rn 07/06 09:33 Order name: Ptt, Activated; Complete Time: 10:45 rn 07/06 09:33 Order name: Urinalysis w/ reflexes; Complete Time: 11:36 rn 07/06 09:33 Order name: Chest Single View XRAY; Complete Time: 11:13 rn 07/06 09:33 Order name: CT Head Brain wo Cont; Complete Time: 10:45 rn 07/06 11:25 Order name: Abdomen ; Complete Time: 12:44 EDFL 07/06 09:33 Order name: EKG; Complete Time: 09:34 rn 07/06 09:33 Order name: Accucheck; Complete Time: 11:12 rn 07/06 09:33 Order name: Cardiac monitoring; Complete Time: 09:43 rn 07/06 09:33 Order name: EKG - Nurse/Tech; Complete Time: 11:12 rn 07/06 09:33 Order name: IV Saline Lock - Large Bore; Complete Time: 10:27 rn 07/06 09:33 Order name: Labs collected and sent; Complete Time: 10:27 rn 07/06 09:33 Order name: O2 Per Protocol; Complete Time: 09:43 rn 07/06 09:33 Order name: O2 Sat Monitoring; Complete Time: 09:43 rn 07/06 09:33 Order name: Vital Signs; Complete Time: 09:43 rn Administered Medications: No medications were administered Disposition Summary: 07/06/24 13:23 Hospitalization Ordered Notes: Hospitalization Status: Observation rn Provider: Terell Ervin [facility] rn Condition: Stable rn Problem: new rn Symptoms: have improved rn Bed/Room Type: Standard rn Room Assignment: 205(07/06/24 16:37) bd Diagnosis - Muscle weakness (generalized) rn - Dehydration rn Forms: - Medication Reconciliation Form rn - SBAR form rn - Leadership Thank You Letter rn Signatures: Dispatcher [employer] EDMS Odessa Heath Roman, MD MD rn Joselo Mary RN RN ll1 Baudilio Albarado, RN RN rs5 Corrections: (The following items were deleted from the chart) 11: 11:13 Abdomen Pelvis W Con+CT.RAD.BRZ ordered. EDMS EDMS 16:37 13:23 burke shankar
[2024-07-06 15:48] VITALS: BMI 30.1
[2024-07-06] MEDS: FLU (Fluarix Triv) TS24-25(6MOS UP)/PF 45 MCG/0.5 ML Syringe IM ONE (16:30)
[2024-07-06] MEDS: PNEUMOCOCCAL VACCINE 0.5 ML IMVAC ONE (17:00)
[2024-07-06] MEDS ORDERED: ONDANSETRON 4 MG/2 ML VIAL IV PRN (17:50)
[2024-07-06] MEDS: NA CHLORIDE 0.9% 1,000 ML IV SCH (18:05)
[2024-07-06] MEDS: carvediloL 6.25 MG TAB PO SCH (19:51)
[2024-07-06] MEDS: INSULIN GLARGINE 100 UNIT/ML SQ SCH (19:51)
[2024-07-06] MEDS: ROSUVASTATIN 10 MG TAB PO SCH (19:51)
[2024-07-06] MEDS: FAMOTIDINE 20 MG TAB PO SCH (19:55)
[2024-07-06] MEDS: INSULIN REGULAR (HUMAN) 100 UNIT/ML SQ SCH (21:00)
[2024-07-07 05:24] LABS: Absolute Eosinophils 0.2 K/uL (0-0.5); Absolute Lymphocytes (CBC) 1.4 K/uL (0.7-4.9); Absolute Monocytes 1.1 K/uL (0.1-1.3); Absolute Neutrophil 4.8 K/uL (1.8-8.0); Basophils % 0.5 % (0-1.3); Eosinophils % 2.5 % (0-4.4); Hematocrit 26.3 % (39.6-49.0); MCH 33.6 pg (27.0-35.0); MCHC 34.1 g/dL (32.0-36.0); MCV 98.6 fL (80-100); MPV 7.3 fL (7.6-11.3); Monocytes % 14.5 % (3.3-12.3); Neutrophils % 64.5 % (41.7-73.7); Nucleated Red Blood Cells % 0.1 % (0-0); Platelets 176 thou/uL (152-406); RBC Red Blood Cell Count 2.67 M/uL (4.33-5.43); Red Cell Distribution Width 14.9 % (12.1-15.2)
[2024-07-07 05:34] LABS: Anion Gap 9.6 mEq/L (5.0-15.0); Potassium 3.6 mEq/L (3.5-5.1)
--- NOTE | 2024-07-07 05:58 | HP ---
Date of Admission: 07/06/2024 Chief Complaint: Dark urine and feeling weak. History Of Present Illness: This is a 64-year-old very pleasant male patient who was brought into office by his son-in-law today with above-mentioned complaints. The patient reports that past weekend on Thursday, he noticed that his urine was dark in color and denies any burning on urination, frequency, or urgency or any fever. The patient also states that his legs were feeling very weak with this dark urine color on Thursday and only medication change that happened since last office visit that he started to take [id number] CoQ10 since March and he stopped taking it as of Thursday. No nausea, vomiting. No chest pain or shortness of breath. No abdominal pain. His symptoms got better on Thursday and as of yesterday he started to feel worse again with dark urine and leg weakness, so he came into office and after he was evaluated he was asked to go to the emergency room for further evaluation and management and I did communicate details with the emergency room physician soon after patient left office and requested evaluation and after patient was evaluated details of all test results was discussed with the emergency room physician and the patient was admitted to the hospital for observation. Because of the patient's significant weakness, he had hard time getting up from a chair to get on the exam table and in fact was not steady on his feet and was high risk at fall and injury, so family member was asked to assist him and not allow the patient to ambulate on his own. Wheelchair was offered, but the patient elected to walk with assistance. Allergies: NO KNOWN ALLERGIES. Medications: Aspirin 81 mg daily, Brilinta 90 mg 2 times a day, Mounjaro 5 mg subcutaneous injection once a week, rosuvastatin 40 mg daily at bedtime, iron 65 mg daily, Lantus 30 units subcutaneous injection daily at bedtime, famotidine 40 mg daily, carvedilol 6.25 mg twice a day, aspirin 81 mg daily, Jardiance 25 mg daily. Review of Systems: Genitourinary: As mentioned. Constitutional: As mentioned above. All other systems reviewed and negative. Past Medical History: Significant for diabetic retinopathy, type 2 diabetes mellitus, hypertension, mixed hyperlipidemia, coronary artery disease, diverticulosis. Past Surgical History: Significant for coronary artery stent placement on July 03, 2022, and April 15, 2024, appendectomy, back surgery, amputation of the tip of the left ring finger. Family History: Father , had throat cancer. Mother has diabetes. Social History: Prior history of smoking, not at present time. Use of alcohol, drinks beer few times a week. Physical Examination: Vital Signs: At office, blood pressure was 125/76, pulse 82, respiratory rate 17, temperature 97.2, weight 217 pounds, height 71 inches. General: The patient appears weaker than normal, not in any distress. HEENT: Head atraumatic, normocephalic. Conjunctivae nonerythematous. Sclerae white. Mouth, no thrush or edema noted. Ears/Nose, no mass, lesion, discharge noted. Neck: Supple. No JVD, lymph nodes, bruit, thyromegaly noted. Lungs: Bilateral good equal air entry. Clear to auscultation. No rhonchi. No rales. Heart: Normal heart sounds, no murmur or gallop. Abdomen: Soft, bowel sounds normal. No guarding, rigidity, tenderness, mass, hepatosplenomegaly, distention, or bruit noted. Extremities: No leg edema. No calf tenderness. Skin: No rash, ulcer, cellulitis. Lymphatics: No lymph node enlargement in neck, supraclavicular, infraclavicular region. Neuro: Generalized weakness, but no focal neurological deficit. Chest: Unremarkable. External Genitalia: Deferred. Rectal: Deferred. Laboratory Data: Urinalysis done at office shows pH 6.5, large blood, more large glucose, large ketones, specific gravity 1.020. Other blood work done in the emergency room shows WBC 8, hemoglobin 11.2, platelets 238, sodium 135, potassium 4, chloride 105, bicarb 24, glucose 150, BUN 23, creatinine 2.06, AST 275, ALT 224, lactic acid 1.6. CAT scan of the abdomen, pelvis and head was negative for any acute changes. Chest x-ray shows no acute intrathoracic changes. EKG shows normal sinus rhythm, no acute changes. Impression: 1. Volume depletion. 2. Hypertension. 3. Mixed hyperlipidemia. 4. Coronary artery disease. 5. Gastroesophageal reflux disease. 6. Type 2 diabetes mellitus. 7. Diverticulosis. Plan: We will go ahead and admit the patient to hospital for further evaluation and management of this problem. The patient will be admitted to the hospital for observation. The patient received IV fluid in the emergency room and he started to feel better after he received 1 bag of IV fluid and will continue maintenance IV fluid at normal saline 100 mL/hour. We will repeat blood work tomorrow morning. For diabetes, we will manage it with sliding scale insulin and long-acting insulin Lantus 10 units tonight instead of his normal dose. For hypertension, we will continue carvedilol per order. The patient is on anti- platelet therapy with aspirin and Brilinta, we will continue both of those medication. For hyperlipidemia, continue his statin therapy per order. Details and plan of treatment discussed with the patient. I will see him tomorrow morning for followup. Total time spent today was 85 minutes including evaluation and management, communication with the emergency room physician on 2 different occasions, and review of all test results done today. I will see him tomorrow morning for followup. FABRIZIO/MOLINA Voice ID: [id number] MTDAlise
[2024-07-07 06:54] LABS: Albumin 2.3 g/dL (3.4-5.0); Albumin/Globulin Ratio 0.6 (1.1-1.8); Bilirubin Direct 0.3 mg/dL (0-0.2); Bilirubin Indirect, Calculated 0.3 mg/dL (0.2-0.8); Bilirubin Total 0.6 mg/dL (0.2-1.0); Globulin 3.7 g/dL (2.3-3.5)
[2024-07-07] MEDS: TICAGRELOR 90 MG TABLET PO SCH (07:00)
[2024-07-07] MEDS: ASPIRIN 81 MG CHEWABLE TABLET PO SCH (08:39)
--- NOTE | 2024-07-08 00:34 | PN ---
Date of Progress Note: 07/07/2024 Subjective: The patient was seen this morning for followup. He was lying in bed, not in distress. Denies any complaints. No chest pain, shortness of breath. His generalized weakness has significant ly improved. He has been able to go to the bathroom on his own without any difficulties. Objective: Vital Signs: Reviewed. HEENT: Unremarkable. Lungs: Clear to auscultation. Heart: Sounds normal. Abdomen: Soft. Bowel sounds normal. No guarding, rigidity, tenderness, distention. Extremities: No leg edema. Laboratory Data: This morning, WBC 7.5, hemoglobin 9, platelets 176. Sodium 136, potassium 3.6, chl oride 108, bicarb 22, BUN 20, creatinine 1.76, glucose 148. Liver function tests today, AST 160, ALT 153, alkaline phosphatase 46, total bilirubin 0.6. CPK 3708. Troponin 13. Impression: 1.Acute rhabdomyolysis. 2.Acute kidney injury. 3.Hyperlipidemia. 4.Type 2 diabetes mellitus. 5.Coronary artery disease. Plan: The patient reports that his generalized weakness, especially leg weakness has improved overni ght. He is getting IV fluid hydration, which we will continue that. The patient did not have his CP K done in the emergency room yesterday. It was done this morning and shows quite elevated and this i s consistent with his clinical presentation. I have discussed these details with him and informed hi m details regarding rhabdomyolysis and underlying etiology, which is likely to be his statin use in f orm of rosuvastatin and this medication should be discontinued permanently and on outpatient basis, we will start him on Repatha. We will repeat blood work tomorrow morning and details and plan of pb atment discussed with the patient. FABRIZIO/MODL Voice ID: [id number] Report ID: [id number]
[2024-07-08 06:45] LABS: Anion Gap 7.7 mEq/L (5.0-15.0); Potassium 3.7 mEq/L (3.5-5.1)
[2024-07-08 12:05] VITALS: BP 119/71; TEMP 98
[2024-07-08 12:49] VITALS: O2SAT 100
--- NOTE | 2024-07-09 04:36 | DS ---
Date of Discharge: 07/08/2024 Disposition: Discharged to go home. Physical Examination: HEENT: Unremarkable. Lungs: Clear to auscultation. Heart: Sounds normal. Abdomen: Soft. Bowel sounds normal. No guarding, rigidity, tenderness, distention. Extremities: No leg edema. NEURO: No focal neurological deficits. The patient's generalized weakness has resolved. Labs: Today, sodium 138, potassium 3.7, chloride 113, bicarb 21, BUN 16, creatinine 1.58, glucose 148. CPK 2763 today. Yesterday, BUN was 20, creatinine 1.76, and CPK was 3708. Troponin was 13. AST yesterday was 160, ALT 153, alkaline phosphatase 46, total bilirubin 0.3. Day before yesterday upon admission, BUN 23, creatinine 2.06, glucose 150, total bilirubin 1, AST 275, ALT 224, alkaline phosphatase 60. CPK was not done when patient came into ER and I have requested lab to see if they can do CPK using the specimen from emergency room. Hospital Course: This is a 64-year-old pleasant male patient who was brought into office with complaints of dark urine as well as leg weakness. Please see dictated H and P for more information. After patient was evaluated at office, he was sent to emergency room for further evaluation and management, and once he was evaluated, decision was made to admit him to the hospital. IV fluid was started and the patient's condition started improving. His CPK originally was not done in the emergency room, which I have requested to be added to the specimen, but yesterday it was 3000 range and this morning it is in 2000 range. So overall, CPK has come down. His symptoms of dark urine and leg weakness has resolved completely. He has no other complaints. No chest pain, shortness of breath, abdominal pain, nausea, vomiting, diarrhea. He is tolerating diet very well. His blood pressure is on the lower side during this hospitalization, so we have discontinued his carvedilol. This morning when I saw him, he had no other complaints and I have discussed details regarding his elevated CPK enzyme due to side effect from his cholesterol medication, rosuvastatin, and that particular medication or that group of medications should be discontinued currently, and on an elective outpatient basis, we will go ahead and initiate the therapy for different type of cholesterol medication, like Repatha. Discharge Diagnoses: 1. Acute rhabdomyolysis, secondary to rosuvastatin. 2. Acute kidney injury. 3. Volume depletion. 4. Hypertension. 5. Hyperlipidemia. 6. Coronary artery disease. 7. Gastroesophageal reflux disease. 8. Type 2 diabetes mellitus. 9. Diverticulosis. Discharge Medications And Instructions: Continue all prior home medications except following changes: 1. Stop carvedilol. 2. Stop rosuvastatin. 3. Follow up at my office next week. 4. The patient to keep himself well hydrated with 60 to 80 ounces of water daily. Total time spent today 45 minutes. FABRIZIO/MODL Voice ID: [id number] Report ID: [id number] JOHN
--- NOTE | 2024-07-11 12:12 | EKG ---
Test Date: 2024-07-06 Test Time: 10:08:57 Psych Assistant: SUSAN MEASUREMENT RESULTS: Intervals: Rate: 78 GA: 170 QRSD: 86 QT: 406 QTc: 462 [place]: P: 55 GA: 170 QRS: 13 T: -16 INTERPRETIVE STATEMENTS: Normal sinus rhythm Normal ECG Compared to ECG 04/14/2024 10:59:48 No significant changes Electronically Signed On 07-11-24 12:05:54 SLIP CASTER by Mehrdad Tian
== END 2024-07-08 15:42 | disposition home or self-care (01) | DRG 558 ==
LOC: ER 09:16 → ERHOLD 13:24 → 2ND 16:49 → OBSVTOIN 07-07 21:41
PROVIDERS: ADMIT Internal Medicine; ATTEND Internal Medicine
DX: M62.82 Rhabdomyolysis (principal); N17.9 Acute kidney failure, unspecified; E86.9 Volume depletion, unspecified; E11.9 Type 2 diabetes mellitus without complications; I10 Essential (primary) hypertension; E86.0 Dehydration; E78.2 Mixed hyperlipidemia; K57.90 Diverticulosis of intestine, part unspecified, without perforation or abscess without bleeding; I25.10 Atherosclerotic heart disease of native coronary artery without angina pectoris; Z95.5 Presence of coronary angioplasty implant and graft; Z79.4 Long term (current) use of insulin; Z79.82 Long term (current) use of aspirin; Z90.49 Acquired absence of other specified parts of digestive tract; T46.6X5A Adverse effect of antihyperlipidemic and antiarteriosclerotic drugs, initial encounter
CPT/HCPCS: 36415; 70450; 71045; 74176; 80048; 80053; 80076; 81001; 82550; 82947; 83605; 84484; 85025; 85610; 85730; 87040; 93005; G0378; J7030